=== PATIENT | male | born 1950 | race Caucasian/White ===

== ENCOUNTER 2017-03-19 16:15 | Emergency (ER) | payer MEDICARE, OTHER ==
--- NOTE | 2017-03-19 16:44 | EDPHY ---
H & P Stated Complaint: Subjective fever,Pain in kidneys; "lots of problems" Source: Patient Exam Limitations: No limitations - Personal History Current Tetanus Diphtheria and Acellular Pertussis (TDAP): Unsure - Medical/Surgical History Hx Asthma: No Hx Chronic Respiratory Disease: No Hx Diabetes: Yes Hx Cardiac Disease: Yes Hx Renal Disease: No Hx Cirrhosis: Yes Hx Alcoholism: No Hx HIV/AIDS: Yes Hx Splenectomy or Spleen Trauma: No Other PMH: out of all of his meds, no med care >2 yrs - Social History Smoking Status: Never smoked Time Seen by Provider: 03/19/17 16:41 HPI/ROS: HPI: This is a 66-year-old male who presents with Chief Complaint: "kidney pain" Location: mid-back Quality:"kidney pain" Duration: Several days Signs and Symptoms: + dysuria, + hesitancy, no hematuria, no N/V, no abdominal pain, + bilateral mid-back, no fever, no chills, no chest pain, no shortness of breath, no lower extremity swelling, no jaundice, no hematemesis, no testicular pain, no abdominal distention Timing: Gradual onset, constant Severity: Moderate Context: Patient presents with multiple complaints but is most concerned with having a urinary tract infection bilateral "kidney pain." Has not had a bowel movement in 4 days. Patient has not been to his primary care provider in 3 years due to being on 13 medications at 1 point and he no longer wants to take that many again. Denies history of BPH. Denies injury/heavy lifting. Modifying Factors: Did not call primary care provider Comment: ROS: Constitutional: No fever, no chills, no weight loss Eyes: No blurred vision Respiratory: No shortness of breath, no cough Cardiovascular: No chest pain Gastrointestinal: No nausea, no vomiting no diarrhea Genitourinary: + dysuria Extremities: No myalgias Neurologic: No weakness, no numbness Skin: No rashes Hematologic: No bruising, no bleeding MEDICAL/SURGICAL HISTORY: History of cirrhosis, hepatitis-C, esophageal varices, type 2 diabetes mellitus , anemia requiring blood transfusion from blood loss, coronary artery disease status post stent, HIV/AIDS Laparoscopic Cholecystectomy. (Vonda Zimmerman) - Physical Exam Exam: CONSTITUTIONAL: Elderly white male, well appearing, nontoxic in appearance, awake and alert, no obvious distress HEENT: Atraumatic and normocephalic, PERRL, EOMI. Tympanic membranes clear. Oropharynx clear, no exudate and moist pink mucosa. Airway patent. No lymphadenopathy. No meningismus. Cardiovascular: Normal S1/S2, regular rate, regular rhythm, without murmur rub or gallop. PULMONARY/CHEST: Symmetrical and nontender. Clear to auscultation bilaterally Good air movement. No accessory muscle usage. ABDOMEN: Soft, nondistended, nontender, no rebound, no guarding, no peritoneal signs, no masses or organomegaly. No CVAT. EXTREMITIES: 2/2 pulses, no deformities, no clubbing, no cyanosis or edema. NEUROLOGICAL: no focal neuro deficits. GCS 15. SKIN: Warm and dry, no erythema. no rash. Good capillary refill. (Vonda Zimmerman) Constitutional: Initial Vital Signs Temperature (C) 37.1 C 03/19/17 16:17 Heart Rate 80 03/19/17 16:17 Respiratory Rate 16 03/19/17 16:17 Blood Pressure 146/84 H 03/19/17 16:17 O2 Sat (%) 97 03/19/17 16:17 O2 Delivery Mode Room Air Allergies/Adverse Reactions: Penicillins Allergy (Unknown, Verified 03/19/17 16:16) Other-Enter Comments Home Medications: Medication Instructions Recorded Nitrofurantoin Monohyd/M-Cryst 100 mg PO BID #14 capsule 03/19/17 [Macrobid 100 mg Capsule] Phenazopyridine HCl [Pyridium] 200 mg PO TID #6 tab 03/19/17 Medical Decision Making - Diagnostics Imaging Results: Imaging Impressions Abdomen X-Ray 03/19/17 16:39 Impression: Nonspecific bowel gas pattern. 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 will evaluate for UTI and elevated LFTs. afebrile. no systemic signs. No signs of active bleeding. non-compliant patient END OF SHIFT: Signed out at [address] Dhillon pending work up. (Vonda Zimmerman) Differential Diagnosis: Back pain including but not limited to muscular pain, herniated disc, spine fracture, intra-abdominal causes and urinary tract infection. (Vonda Zimmerman) Urinalysis is consistent with urinary tract infection. There is no elevation white blood cell count. Liver function tests are appropriate. Plan will be to start the patient on antibiotics and refer for outpatient follow-up. (Stalin Dhillon) - Data Points Laboratory Results: Laboratory Results 03/19/17 16:47 03/19/17 16:47 03/19/17 03/19/17 03/19/17 16:47 16:47 16:47 WBC RBC Hgb Hct MCV MCH MCHC RDW Plt Count MPV Neut % (Auto) Lymph % (Auto) [place] % (Auto) Eos % (Auto) Baso % (Auto) Nucleat RBC Rel Count Absolute Neuts (auto) Absolute Lymphs (auto) Absolute Monos (auto) Absolute Eos (auto) Absolute Basos (auto) Absolute Nucleated RBC Immature Gran % Immature Gran # VBG Lactic Acid 1.7 mmol/L mmol/L (0.7-2.1) Sodium 131 mEq/L L mEq/L (134-144) Potassium 3.6 mEq/L mEq/L (3.5-5.2) Chloride 100 mEq/L mEq/L (97-110) Carbon Dioxide 20 mEq/l L mEq/l (22-31) Anion Gap 11 mEq/L mEq/L (8-16) BUN 15 mg/dL mg/dL (7-23) Creatinine 1.1 mg/dL mg/dL (0.7-1.3) Estimated GFR > 60 Glucose 278 mg/dL H mg/dL (70-100) Calcium 8.4 mg/dL L mg/dL (8.5-10.4) Magnesium 1.6 mg/dL mg/dL (1.6-2.3) Total Bilirubin 1.2 mg/dL mg/dL (0.1-1.4) Conjugated Bilirubin 0.3 mg/dL mg/dL (0.0-0.5) Unconjugated Bilirubin 0.9 mg/dL mg/dL (0.0-1.1) AST 36 IU/L IU/L (17-59) ALT 49 IU/L IU/L (21-72) Alkaline Phosphatase 91 IU/L IU/L (38-126) Total Protein 7.1 g/dL g/dL (6.3-8.2) Albumin 2.9 g/dL L g/dL (3.5-5.0) Lipase 299 IU/L IU/L (23-300) Beta-Hydroxybutyrate Pending Urine Color ALEXANDRE Urine Appearance HAZY Urine pH 5.0 (5.0-7.5) Ur Specific [place] 1.025 (1.002-1.030) Urine Protein 2+ H (NEGATIVE) Urine Ketones NEGATIVE (NEGATIVE) Urine Blood 1+ H (NEGATIVE) Urine Nitrate NEGATIVE (NEGATIVE) Urine Bilirubin NEGATIVE (NEGATIVE) Urine Urobilinogen NEGATIVE EU EU (0.2-1.0) Ur Leukocyte Esterase 3+ H (NEGATIVE) Urine RBC 5-10 /hpf H /hpf (0-3) Urine WBC 50-182 /hpf H /hpf (0-3) Ur Epithelial Cells TRACE /lpf /lpf (NONE-1+) Hyaline Casts 1-5 /lpf /lpf (0-1) Urine Mucus TRACE /lpf /lpf (NONE-1+) Urine Glucose NEGATIVE (NEGATIVE) 03/19/17 16:47 WBC 7.57 10^3/uL 10^3/uL (3.80-9.50) RBC 4.72 10^6/uL 10^6/uL (4.40-6.38) Hgb 11.6 g/dL L g/dL (13.7-17.5) Hct 36.8 % L % (40.0-51.0) MCV 78.0 fL L fL (81.5-99.8) MCH 24.6 pg L pg (27.9-34.1) MCHC 31.5 g/dL L g/dL (32.4-36.7) RDW 16.5 % H % (11.5-15.2) Plt Count 109 10^3/uL L 10^3/uL (150-400) MPV 10.9 fL fL (8.7-11.7) Neut % (Auto) 77.8 % H % (39.3-74.2) Lymph % (Auto) 11.2 % L % (15.0-45.0) [place] % (Auto) 9.8 % % (4.5-13.0) Eos % (Auto) 0.4 % L % (0.6-7.6) Baso % (Auto) 0.4 % % (0.3-1.7) Nucleat RBC Rel Count 0.0 % % (0.0-0.2) Absolute Neuts (auto) 5.89 10^3/uL 10^3/uL (1.70-6.50) Absolute Lymphs (auto) 0.85 10^3/uL L 10^3/uL (1.00-3.00) Absolute Monos (auto) 0.74 10^3/uL 10^3/uL (0.30-0.80) Absolute Eos (auto) 0.03 10^3/uL 10^3/uL (0.03-0.40) Absolute Basos (auto) 0.03 10^3/uL 10^3/uL (0.02-0.10) Absolute Nucleated RBC 0.00 10^3/uL 10^3/uL (0-0.01) Immature Gran % 0.4 % % (0.0-1.1) Immature Gran # 0.03 10^3/uL 10^3/uL (0.00-0.10) VBG Lactic Acid Sodium Potassium Chloride Carbon Dioxide Anion Gap BUN Creatinine Estimated GFR Glucose Calcium Magnesium Total Bilirubin Conjugated Bilirubin Unconjugated Bilirubin AST ALT Alkaline Phosphatase Total Protein Albumin Lipase Beta-Hydroxybutyrate Urine Color Urine Appearance Urine pH Ur Specific [place] Urine Protein Urine Ketones Urine Blood Urine Nitrate Urine Bilirubin Urine Urobilinogen Ur Leukocyte Esterase Urine RBC Urine WBC Ur Epithelial Cells Hyaline Casts Urine Mucus Urine Glucose Departure - Departure Disposition: Home, Routine, Self-Care Clinical Impression: Medical non-compliance, Urinary tract infection Condition: Good Instructions: Urinary Tract Infection in Women (ED) Additional Instructions: Follow up with Dr. Haywood in 4-5 days. Return to the emergency depart for increasing pain, fevers, chills, nausea, vomiting, or any other concerns. Please make sure to take your full course of antibiotics. Referrals: Sabrina Haywood MD [Medical Doctor] - As per Instructions Prescriptions: Nitrofurantoin Monohyd/M-Cryst [Macrobid 100 mg Capsule] 100 mg PO BID #14 capsule Phenazopyridine HCl [Pyridium] 200 mg PO TID #6 tab
[2017-03-19 17:00] LABS: % IMMATURE GRANULYOCYTES 0.4 % (0.0-1.1); ABSOLUTE IMMATURE GRANULOCYTES 0.03 10^3/uL (0.00-0.10); ADD DIFF? NO; ADD MORPH? NO; ADD SCAN? NO; ATYPICAL LYMPHOCYTE FLAG 0 (0-99); FRAGMENT RBC FLAG 0 (0-99); HEMATOCRIT 36.8 % (40.0-51.0); HEMOGLOBIN 11.6 g/dL (13.7-17.5); LEFT SHIFT FLG 0 (0-99); LIPEMIA HEMOLYSIS FLAG 80 (0-99); MEAN CELL HEMOGLOBIN 24.6 pg (27.9-34.1); MEAN CELL HEMOGLOBIN CONCENTR. 31.5 g/dL (32.4-36.7); MEAN PLATELET VOLUME 10.9 fL (8.7-11.7); PLATELET CLUMPS FLAG 0 (0-99); PLATELET COUNT 109 10^3/uL (150-400); RED BLOOD CELL COUNT 4.72 10^6/uL (4.40-6.38); RED CELL DISTRIBUTION WIDTH 16.5 % (11.5-15.2)
[2017-03-19 17:03] LABS: COLOR AMBER; LEUKOCYTE ESTERASE,URINE 3+ (NEGATIVE); NITRITE,URINE NEGATIVE (NEGATIVE)
[2017-03-19 17:06] LABS: MUCUS TRACE /lpf (NONE-1+); WBC,URINE 50-182 /hpf (0-3)
[2017-03-19 17:15] LABS: ALANINE AMINOTRANSFERASE 49 IU/L (21-72); ALBUMIN 2.9 g/dL (3.5-5.0); ALKALINE PHOSPHATASE 91 IU/L (38-126); ANION GAP 11 mEq/L (8-16); ASPARTATE AMINOTRANSFERASE 36 IU/L (17-59); BILIRUBIN,TOTAL 1.2 mg/dL (0.1-1.4); BILIRUBIN-CONJUGATED 0.3 mg/dL (0.0-0.5); BILIRUBIN-UNCONJUGATED 0.9 mg/dL (0.0-1.1); CALCIUM 8.4 mg/dL (8.5-10.4); CARBON DIOXIDE 20 mEq/l (22-31); CHLORIDE 100 mEq/L (97-110); CREATININE 1.1 mg/dL (0.7-1.3); GLOMERULAR FILTRATION RATE > 60; GLUCOSE 278 mg/dL (70-100); MAGNESIUM 1.6 mg/dL (1.6-2.3); POTASSIUM 3.6 mEq/L (3.5-5.2); SODIUM 131 mEq/L (134-144); TOTAL PROTEIN 7.1 g/dL (6.3-8.2)
[2017-03-19] MEDS ORDERED: NITROFURANTOIN 100MG PREPACK#2 BTL TAKEHOME ONE (17:29)
[2017-03-19] MEDS ORDERED: PHENAZOPYRIDINE HCL 200 MG TAB PO ONE (17:29)
[2017-03-19 17:49] LABS: B-HYDROXYBUTYRATE 0.11 mmol/L (0.02-0.27)
[2017-03-19 17:50] VITALS: BP 135/75; PULSE 76; RESP 18; TEMP 98.6; O2SAT 96
== END 2017-03-19 17:50 | disposition home or self-care (01) ==
DX: N39.0 Urinary tract infection, site not specified (principal); E11.9 Type 2 diabetes mellitus without complications; I25.10 Atherosclerotic heart disease of native coronary artery without angina pectoris; B20 Human immunodeficiency virus [HIV] disease; Z91.19 Patient's noncompliance with other medical treatment and regimen; Z95.5 Presence of coronary angioplasty implant and graft

== ENCOUNTER 2017-03-23 20:48 | Inpatient (IN) | payer OTHER ==
[2017-03-23] MEDS ORDERED: NS 1,000 ML IV ONE (21:55)
--- NOTE | 2017-03-23 21:55 | EDPHY ---
H & P Stated Complaint: flank pain bilaterally, burning, fatigue, fever HPI/ROS: HPI CHIEF COMPLAINT: Bilateral flank, urinary frequency, dysuria, fever HISTORY OF PRESENT ILLNESS: This patient very pleasant 58-year-old male he does have significant past medical history for coronary artery disease, hepatitis-C, esophageal varices, who presents emergency room with bilateral flank pain urinary frequency and dysuria that is getting worse. Also tells me he has been febrile. 102. Denies chest pain or shortness of breath. Has nausea but no vomiting. States he feels fatigued. Decided come back to the emergency room. He has been taking his Macrobid for a recently diagnosed UTI on March 19. Past Medical History: Coronary disease, hepatitis-C, esophageal varices Past Surgical History: No recent surgery Social History: Denies daily use drugs alcohol tobacco products. Remote history of drug use. Family History: Noncontributory ROS REVIEW OF SYSTEMS: A comprehensive 10 point review of systems is otherwise negative aside from elements mentioned in the history of present illness. Exam Constitutional appears well nontoxic, triage nursing summary reviewed, vital signs reviewed, awake/alert. Eyes normal conjunctivae and sclera, EOMI, PERRLA. HENT normal inspection, atraumatic, moist mucus membranes, no epistaxis, neck supple/ no meningismus, no raccoon eyes. Respiratory clear to auscultation bilaterally, normal breath sounds, no respiratory distress, no wheezing. Cardiovascular rate normal, regular rhythm, no murmur, no edema, distal pulses normal. Gastrointestinal soft, non-tender, no rebound, no guarding, normal bowel sounds, no distension, no pulsatile mass. Genitourinary bilateral CVA tenderness on exam Musculoskeletal no midline vertebral tenderness, full range of motion, no calf swelling, no tenderness of extremities, no meningismus, good pulses, neurovascularly intact. Skin pink, warm, & dry, no rash, skin atraumatic. Neurologic awake, alert and oriented x 3, AAOx3, moves all 4 extremities equally, motor intact, sensory intact, CN II-XII intact, normal cerebellar, normal vision, normal speech. Psychiatric normal mood/affect. Heme/Lymph/Immune no lymphadenopathy. Differential diagnosis includes but is not limited to and in no particular order : Bowel obstruction, appendicitis, gallbladder disease, diverticulitis, colitis , enteritis, perforated viscus, gastritis, GERD, esophagitis, urinary tract infection, pyelonephritis, kidney stones Medical Decision Making: Plan for this patient IV establishment with IV fluid bolus, check blood work, lactic acid, blood cultures, urinalysis, CT abdomen pelvis without contrast for flank pain. Re-evaluation: 2303: This patient be admitted to the hospital for UTI hollow symptoms. IV Rocephin has been ordered. Blood clot, and culture. Reviewed his urinalysis test. No systemic white count. He is anemic he is agreeable for admission. CT scan shows liver cirrhosis small volume ascites otherwise unremarkable CT scan. He is agreeable for admission. Spoke with the hospitalist service Dr. Manuel who agrees to admit this patient. Source: Patient - Personal History Current Tetanus/Diphtheria Vaccine: No Current Tetanus Diphtheria and Acellular Pertussis (TDAP): No - Medical/Surgical History Hx Asthma: No Hx Chronic Respiratory Disease: No Hx Diabetes: Yes Hx Cardiac Disease: Yes Hx Renal Disease: No Hx Cirrhosis: Yes Hx Alcoholism: No Hx HIV/AIDS: Yes Hx Splenectomy or Spleen Trauma: No Other PMH: anemia, hepatitis C, esphogeal varices, ascities, cardiac stents, - Social History Smoking Status: Never smoked Constitutional: Initial Vital Signs Temperature (C) 37.9 C 03/23/17 20:50 Heart Rate 88 03/23/17 20:50 Respiratory Rate 18 03/23/17 20:50 Blood Pressure 144/89 H 03/23/17 20:50 O2 Sat (%) 97 03/23/17 20:50 O2 Delivery Mode Room Air Allergies/Adverse Reactions: Penicillins Allergy (Unknown, Verified 03/19/17 16:16) Other-Enter Comments Home Medications: Medication Instructions Recorded Nitrofurantoin Monohyd/M-Cryst 100 mg PO BID #14 capsule 03/19/17 [Macrobid 100 mg Capsule] Acetaminophen [Tylenol 325mg (*)] 650 mg PO DAILY PRN 03/23/17 Medical Decision Making - Diagnostics Imaging Results: Imaging Impressions Paracentesis Ultrasound 03/24/17 00:18 Impression: Successful 1400 mL paracentesis with ultrasound guidance. - Data Points Laboratory Results: Laboratory Results 03/24/17 05:08 03/24/17 05:08 Microbiology Results: MICROBIOLOGY 03/23/17 22:39 Blood Blood Culture - Preliminary Gram Positive Cocci 03/23/17 22:39 Blood Blood Panel (PCR) - Final S.aureus Methicillin Suscept. 03/23/17 21:50 Urine,Clean Catch Urine Culture - Preliminary Staphylococcus Aureus 03/23/17 22:55 Blood Blood Culture - Preliminary Gram Positive Cocci Medications Given: Acetaminophen (Tylenol) 500 mg PO Q8H PRN PRN Reason: Pain, Mild/Fever, Can Take PO Stop: 09/20/17 00:18 Last Admin: 03/24/17 15:20 Dose: 500 mg Enoxaparin Sodium (Lovenox) 40 mg SC DAILY [facility] Stop: 09/20/17 08:59 Last Admin: 03/24/17 08:47 Dose: 40 mg Cefazolin Sodium/Dextrose (Ancef 2 Gm (Premix)) 100 mls @ 200 mls/hr IV Q8H [facility] PRN Reason: Protocol Stop: 04/23/17 18:29 Last Admin: 03/24/17 18:43 Dose: 100 mls Insulin Human Lispro (Humalog Lispro) 0 unit SC TIDMEAL [facility] PRN Reason: Protocol Stop: 09/20/17 17:59 Last Admin: 03/24/17 17:07 Dose: 6 units Magnesium Hydroxide (Milk Of Magnesia) 30 ml PO DAILY PRN; Protocol PRN Reason: Constipation Stop: 09/20/17 00:14 Last Admin: 03/24/17 00:49 Dose: 30 ml Oxycodone HCl (Oxycodone Ir) 5 mg PO Q4HRS PRN PRN Reason: Pain, Severe Able to Take PO Stop: 04/03/17 09:26 Last Admin: 03/24/17 18:43 Dose: 5 mg Senna/Docusate Sodium (Senokot-S) 1 - 2 tab PO BID [facility] PRN Reason: Protocol Stop: 09/20/17 08:59 Last Admin: 03/24/17 21:03 Dose: 2 tab Discontinued Medications Sodium Chloride (Ns) 1,000 mls @ 0 mls/hr IV EDNOW ONE; Wide Open PRN Reason: Protocol Stop: 03/23/17 21:56 Last Admin: 03/23/17 22:54 Dose: 1,000 mls Ceftriaxone Sodium/Dextrose (Rocephin 1 Gm (Premix)) 50 mls @ 100 mls/hr IV EDNOW ONE PRN Reason: Protocol Stop: 03/23/17 22:56 Last Admin: 03/23/17 22:56 Dose: 50 mls Ceftriaxone Sodium/Dextrose (Rocephin 1 Gm (Premix)) 50 mls @ 100 mls/hr IV DAILY KATHYA PRN Reason: Protocol Stop: 04/23/17 08:59 Last Admin: 03/24/17 08:48 Dose: 50 mls Sodium Chloride (Ns) 1,000 mls @ 75 mls/hr IV CONT KATHYA Stop: 09/20/17 00:29 Last Admin: 03/24/17 13:08 Dose: 1,000 mls Ibuprofen (Motrin) 600 mg PO Q6HRS PRN PRN Reason: Pain, Inflammatory Stop: 09/20/17 00:18 Last Admin: 03/24/17 01:30 Dose: 600 mg Departure - Departure Disposition: [facility] Acute Clinical Impression: Pyelonephritis Condition: Fair
[2017-03-23 22:06] LABS: COLOR YELLOW; LEUKOCYTE ESTERASE,URINE 3+ (NEGATIVE); NITRITE,URINE NEGATIVE (NEGATIVE)
[2017-03-23 22:21] LABS: BACTERIA TRACE /hpf (NONE SEEN); RBC,URINE 25-50 /hpf (0-3); WBC,URINE 50-182 /hpf (0-3)
[2017-03-23 22:52] LABS: % IMMATURE GRANULYOCYTES 0.5 % (0.0-1.1); ABSOLUTE IMMATURE GRANULOCYTES 0.04 10^3/uL (0.00-0.10); ADD DIFF? NO; ADD MORPH? NO; ADD SCAN? NO; ATYPICAL LYMPHOCYTE FLAG 10 (0-99); FRAGMENT RBC FLAG 0 (0-99); HEMATOCRIT 33.4 % (40.0-51.0); HEMOGLOBIN 10.4 g/dL (13.7-17.5); LEFT SHIFT FLG 0 (0-99); LIPEMIA HEMOLYSIS FLAG 80 (0-99); MEAN CELL HEMOGLOBIN 24.6 pg (27.9-34.1); MEAN CELL HEMOGLOBIN CONCENTR. 31.1 g/dL (32.4-36.7); MEAN CELL VOLUME 79.1 fL (81.5-99.8); MEAN PLATELET VOLUME 10.8 fL (8.7-11.7); PLATELET CLUMPS FLAG 10 (0-99); PLATELET COUNT 150 10^3/uL (150-400); RED BLOOD CELL COUNT 4.22 10^6/uL (4.40-6.38); RED CELL DISTRIBUTION WIDTH 16.5 % (11.5-15.2)
[2017-03-23 23:01] LABS: INR 1.26 (0.83-1.16); PROTIME(PATIENT) 15.8 SEC (12.0-15.0)
[2017-03-23 23:02] LABS: APTT 31.5 SEC (23.0-38.0)
[2017-03-23 23:03] LABS: ALANINE AMINOTRANSFERASE 48 IU/L (21-72); ALBUMIN 2.9 g/dL (3.5-5.0); ALKALINE PHOSPHATASE 126 IU/L (38-126); ANION GAP 8 mEq/L (8-16); ASPARTATE AMINOTRANSFERASE 32 IU/L (17-59); BILIRUBIN-CONJUGATED 0.4 mg/dL (0.0-0.5); BILIRUBIN-UNCONJUGATED 0.6 mg/dL (0.0-1.1); CALCIUM 8.1 mg/dL (8.5-10.4); CARBON DIOXIDE 20 mEq/l (22-31); CHLORIDE 103 mEq/L (97-110); CREATININE 0.9 mg/dL (0.7-1.3); GLOMERULAR FILTRATION RATE > 60; GLUCOSE 254 mg/dL (70-100); POTASSIUM 3.9 mEq/L (3.5-5.2); SODIUM 131 mEq/L (134-144); TOTAL PROTEIN 6.9 g/dL (6.3-8.2)
[2017-03-23] MEDS ORDERED: ONDANSETRON DISINTEGRATING 4 MG TAB PO PRN (23:32)
[2017-03-23] MEDS ORDERED: ONDANSETRON 4 MG/2 ML VIAL IVP PRN (23:32)
[2017-03-23] MEDS ORDERED: ACETAMINOPHEN 325 MG TAB PO PRN (23:32)
[2017-03-24] MEDS ORDERED: LACTULOSE 20 GM/30 ML UDCUP PO PRN (00:15)
[2017-03-24] MEDS ORDERED: POLYETHYLENE GLYCOL 3350 17 GM PKT PO PRN (00:15)
[2017-03-24] MEDS ORDERED: BISACODYL 10 MG SUPP PR PRN (00:15)
[2017-03-24] MEDS ORDERED: MAGNESIUM HYDROXIDE 30 ML UDCUP PO PRN (00:15)
[2017-03-24] MEDS ORDERED: IBUPROFEN 600 MG TAB PO PRN (00:19)
[2017-03-24] MEDS: NS 1,000 ML IV SCH ×2 (00:44→13:08)
[2017-03-24] MEDS ORDERED: SENNOSIDES/DOCUSATE SODIUM TAB PO ONE (00:46)
[2017-03-24] MEDS: SENNOSIDES/DOCUSATE SODIUM TAB PO SCH ×3 (00:48→21:03)
--- NOTE | 2017-03-24 03:26 | GHP ---
[f rep st] HISTORY AND PHYSICAL DATE OF ADMISSION: 03/24/2017 CHIEF COMPLAINT: Flank pain. PRIMARY EMERGENCY DISPATCH OPERATOR: Stalin Vanegas MD. HISTORY OF PRESENT ILLNESS: A 66-year-old male with history of cirrhosis secondary to hepatitis C, who was seen in the emergency room on 03/19/2017 for urinary symptoms and sent home on antibiotics. He was prescribed Macrobid. He returns today because he states that he was not getting better. His symptoms include fevers, chills, sweats. He had temperatures of 102 at home. Decreased p.o. intake. He has had bilateral flank pain and feels like he was kicked. He has also had a headache. Mild nausea. No diarrhea. Feels fatigued. He has also been taking Tylenol and Advil for his fever. It feels like his body has been "oxidized." PAST MEDICAL HISTORY: Coronary artery disease, hepatitis C. Cirrhosis with esophageal varices status post banding several times last 09/07/2014, per patient. Type 2 diabetes, off medications. Anemia. PAST SURGICAL HISTORY: Cholecystectomy. FAMILY HISTORY: Colon cancer. HOME MEDICATIONS: Macrobid and Pyridium. ALLERGIES: Penicillin. 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 He denies alcohol, tobacco, or illicits. PHYSICAL EXAMINATION: VITAL SIGNS: Temperature 36.9 blood pressure 163/84, heart rate 70s, respirations 16, 97% on room air. GENERAL: Thin male, restless in bed, in no acute distress. HEENT: PERRLA. Mildly dry mucous membranes. CV: Regular rate and rhythm. No murmurs, gallops, or rubs. LUNGS : Clear. No crackles or wheezing. ABDOMEN: Mildly distended but soft. Mild right upper quadrant tenderness. No rebound, guarding. Quiet bowel sounds throughout. : Right suprapubic tenderness to palpation. Bilateral CVA tenderness. MUSCULOSKELETAL: 5/5 upper lower extremity strength. NEURO: 2 through 12 intact. PSYCH: Alert and oriented x3. LABORATORIES: WBC 7, hemoglobin 10, hematocrit 33, platelets 150, (baseline is 12 and 40 in 2014). Sodium 131, potassium 3.9, chloride 103, carbon dioxide 20 , anion gap of 8, creatinine 0.9, glucose 254, calcium 8.1. Total bilirubin 1, conjugated 0.4, AST 32, ALT 48, alkaline phosphatase 126, lipase 321, albumin 2.9, protein 6.9. Urine +3 leuk esterase, 50-182 WBCs, trace bacteria. INR is 1.2, PT is 15. Blood and urine cultures are pending. IMAGING: CT abdomen and pelvis, no acute findings in the abdomen. Cirrhosis with sequela of portal hypertension including splenomegaly and small volume ascites. Kidneys appear normal, no stones. ASSESSMENT AND PLAN: 1. Urinary tract infection/pyelonephritis: failed outpatient therapy on Macrobid. Start IV ceftriaxone here. Urine and blood cultures are pending. He is afebrile here. Blood pressure stable. CT without abscess or hydronephrosis. 2. Abdominal pain: Suspect this is secondary to urinary infection, however, does have small amount of ascites. Covered with ceftriaxone tonight. Obtain diagnostic paracentesis in the morning and rule out spontaneous bacterial peritonitis given underlying cirrhosis. 3. Compensated cirrhosis: He is followed by Dr. Vanegas. He has history of esophageal varices banded several times. He was previously on diuretics but none now. 4. Hypovolemic hyponatremia. Sodium mildly decreased at 131, baseline is 134. Will give back the gentle IV fluids. 5. Constipation. He has not had a bowel movement in 9 days. For bowel regimen , he would like to take senna. 6. Normocytic anemia. H and H are 10 and 33, down from baseline hematocrit of 40 two years ago. He denies any melena, hematemesis, or red stools. Monitor. 7. Hyperglycemia: He states he has diabetes, but has been off medications for several years. He tries to adhere to a diabetic diet. We will check a hemoglobin A1c as may need re-initiation of medications. 8. Mild metabolic acidosis secondary to decreased p.o. intake, dehydration. Will give back gentle fluids. 9. Deep venous thrombosis prophylaxis. Lovenox. 10. Diet: Regular. 11. Disposition. The patient warrants observation admission given urinary tract infection/pyelonephritis warranting intravenous antibiotics. /[id number]/MODL MTDD
[2017-03-24 05:28] LABS: HEMATOCRIT 32.2 % (40.0-51.0); HEMOGLOBIN 10.1 g/dL (13.7-17.5); MEAN CELL HEMOGLOBIN 24.9 pg (27.9-34.1); MEAN CELL HEMOGLOBIN CONCENTR. 31.4 g/dL (32.4-36.7); MEAN CELL VOLUME 79.3 fL (81.5-99.8); RED BLOOD CELL COUNT 4.06 10^6/uL (4.40-6.38); RED CELL DISTRIBUTION WIDTH 16.5 % (11.5-15.2)
[2017-03-24 05:39] LABS: ANION GAP 6 mEq/L (8-16); CALCIUM 8.1 mg/dL (8.5-10.4); CARBON DIOXIDE 20 mEq/l (22-31); CHLORIDE 107 mEq/L (97-110); GLOMERULAR FILTRATION RATE > 60; GLUCOSE 197 mg/dL (70-100); POTASSIUM 3.9 mEq/L (3.5-5.2); SODIUM 133 mEq/L (134-144)
[2017-03-24] MEDS: ENOXAPARIN 40 MG/0.4 ML SYR SC SCH (08:47)
[2017-03-24 09:03] LABS: HEMOGLOBIN A1C 9.8 % (4.0-6.0)
--- NOTE | 2017-03-24 09:24 | HOSPPROG ---
Hospitalist Progress Note Assessment/Plan: Patient is a 66-year-old male with history of cirrhosis secondary to hepatitis- C. He came to the emergency room because of ongoing flank pain. after longer discussion. The patient has been having symptoms for over a week with associated fever and chills for thought he would tough it out. Today is my 1st encounter with the patient. Chart reviewed. * urinary tract infection/pyelonephritis On ceftriaxone CT scan does not noted any abscess or hydronephrosis * bacteremia/ two positive blood cultures with gram positive cocci/ staph aureus change him to cephazolin for now and await for ID to further comment will ask ID to get involved to help w abx therapy * abdominal pain He has a small amount of ascites Paracentesis performed to rule out spontaneous bacterial peritonitis which he does not have * compensated cirrhosis Sees Dr. Vanegas in the outpatient setting Not on diuretics Liver enzymes are stable * hyponatremia most likely secondary to hypovolemia * normocytic anemia follow his labs are close to his baseline * metabolic acidosis secondary to dehydration *DM /hx of diabetes/not on treatment A1C 9.8/ average glucose of [address] him on a sliding scale * hyponatremia recheck in the morning *Plan:he will need another midnight stay due to bacteremia/will ask ID to weigh in on abx therapy and if an echo is indicated Subjective: Bimal said he is feeling poorly today. Objective: Vital Signs Temp Pulse Resp BP Pulse Ox 36.7 C 66 16 127/60 H 98 03/24/17 07:46 03/24/17 07:46 03/24/17 07:46 03/24/17 07:46 03/24/17 07:46 Laboratory Results 03/24/17 05:08 03/24/17 05:08 03/23/17 03/24/17 03/25/17 05:59 05:59 05:59 Intake Total 2501 Output Total 150 Balance 2351 PT 15.8 SEC (12.0-15.0) H 03/23/17 22:39 INR 1.26 (0.83-1.16) H 03/23/17 22:39 - Physical Exam Constitutional: uncomfortable, No not in pain (flank pain) Ears, Nose, Mouth, Throat: hearing normal Cardiovascular: regular rate and rhythym Respiratory: no respiratory distress Gastrointestinal: normoactive bowel sounds Skin: warm Musculoskeletal: full muscle strength Neurologic: AAOx3 Psychiatric: interacting appropriately, not anxious ICD10 Worksheet Patient Problems: Problems Problem Status Onset Pyelonephritis Acute Anemia Acute
[2017-03-24] MEDS: oxyCODONE IR 5 MG TAB PO PRN ×2 (10:09→18:43)
[2017-03-24] MEDS ORDERED: LIDOCAINE 1% 300 MG/30 ML SDV ONE (12:24)
[2017-03-24] MEDS ORDERED: D50W 25 GM/50 ML SYR IVP PRN (13:55)
[2017-03-24] MEDS ORDERED: D10W 250 ML PRN HYPOGLYCEMIA IV (14:30)
[2017-03-24] MEDS: ACETAMINOPHEN 500 MG TAB PO PRN (15:20)
[2017-03-24 15:39] LABS: GLUCOSE, PERITONEAL FLUID 221 mg/dL (55-113)
[2017-03-24] MEDS: INSULIN LISPRO 100 UNIT/ML SC SCH (17:07)
[2017-03-24] MEDS: ceFAZolin 2 GM/DEXTROSE 100 ML IV SCH (18:43)
[2017-03-25] MEDS: oxyCODONE IR 5 MG TAB PO PRN ×5 (00:57→20:46)
[2017-03-25] MEDS: ACETAMINOPHEN 500 MG TAB PO PRN ×2 (01:01→22:28)
[2017-03-25] MEDS: ceFAZolin 2 GM/DEXTROSE 100 ML IV SCH ×3 (01:55→17:31)
--- NOTE | 2017-03-25 04:23 | GCON ---
[f rep st] CONSULTATION INFECTIOUS DISEASE CONSULTATION DATE OF CONSULTATION: 03/24/2017 Requesting provider is Alma Rios, nurse practitioner. REASON FOR CONSULTATION: Staphylococcus aureus bacteremia. HISTORY OF PRESENT ILLNESS: Patient is a 66-year-old male with a past medical history of cirrhosis d ue to hepatitis C, who I am asked to see in consultation for methicillin-susceptible Staphylococcus a ureus bacteremia. The patient describes developing fever with shaking chills approximately 10 days a go. These have occurred intermittently since then. They are more prominent in the evening. On 07/2016, the patient was seen in the emergency department for these complaints. He was also having sy mptoms of dysuria, frequency, and hesitancy. He also noted bilateral flank pain. At that time, he h ad a normal white blood cell count and temperature. Findings were felt to be compatible with urinary tract infection and he was started on nitrofurantoin. Despite his antibiotic therapy, his symptoms persisted and he had ongoing fever with chills, as well as dysuria and frequency, prompting his repea t evaluation in the emergency department yesterday. He continued to have bilateral flank pain and de scribes this as feeling like he had been kicked. He was admitted and treated presumptively for pyelo nephritis with ceftriaxone. Blood cultures were obtained and 2 of 2 sets are now showing methicillin -susceptible Staphylococcus aureus. Urine culture obtained yesterday is also showing low colony coun ts of Staphylococcus aureus. He did undergo CT scan of the abdomen and pelvis which showed no acute findings and changes compatible with cirrhosis were present with a small amount of ascites being note d. Kidneys did not show any abnormal enhancement. 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 He did have associated nausea without sign ificant vomiting or diarrhea. He has a chronic cough and shortness of breath, which are largely unch anged. He did undergo paracentesis earlier today, which showed 361 white blood cells with 18% neutro phils. Gram stain and culture of this fluid are pending. There is no recent travel or animal exposu re. He does have a prior history of bacteremia due to Streptococcus salivarius in 2013, which was fe lt to be associated with GI bleed. He did see Dr. Garcia in my practice at that point in time and re ceived a treatment course with IV ceftriaxone. Based on the above findings, I am now asked to assist in his ongoing management. PAST MEDICAL HISTORY: Cirrhosis due to hepatitis C, esophageal varices, coronary artery disease, typ e 2 diabetes mellitus, anemia. PAST SURGICAL HISTORY: Cholecystectomy. CURRENT MEDICATIONS: Ceftriaxone 1 g IV daily, Lovenox 40 mg subcu daily, lactulose 20 g p.o. 3 time s per day as needed, OxyIR as needed. ALLERGIES: Penicillin, although this occurred many years ago and he is unsure of what the reaction w as. SOCIAL HISTORY: Patient does not smoke, drink alcohol or use drugs; he did use injection drugs in , which is felt to be the etiology for his hepatitis C. No animal exposure or recent travel. FAMILY HISTORY: Metastatic cancer in his mother. REVIEW OF SYSTEMS: Outside that noted in the HPI, the remainder of 10 system review is unremarkable. PHYSICAL EXAMINATION: VITAL SIGNS: Temperature 37.8, heart rate 71, respiratory rate 16, blood pres sure 134/61, oxygen saturation 96% on room air. GENERAL: Patient is chronically ill appearing, in n o acute distress. He appears nontoxic. HEENT: There is no scleral icterus, conjunctival injection, or conjunctival petechiae. Oropharynx shows dry mucous membranes with poor dentition. There is no tenderness over the frontal, maxillary or mastoid area. There is no nasal discharge. NECK: Supple without lymphadenopathy or palpable thyromegaly. CHEST: Clear to auscultation bilaterally without a dventitious sounds. The respiratory effort is normal. CARDIOVASCULAR: Regular rate and rhythm with a 2/6 systolic murmur heard throughout. There are no gallops or rubs. ABDOMEN: Soft, nontender, n ondistended. There is no fluid wave present. There is no palpable organomegaly. Bowel sounds are p resent. MUSCULOSKELETAL: There is no cyanosis, clubbing, or edema. SKIN: There are ecchymoses and a few superficial abrasions over both forearms. There are no stigmata of endocarditis. The skin is warm and dry to touch. NEUROLOGIC: Patient is alert and interacts appropriately with the examiner. Cranial nerves 2 through 12 are grossly intact. Sensation is grossly intact. Muscle tone and bulk are normal. LYMPHATICS: No cervical or supraclavicular inguinal. LABORATORY DATA: White blood cell count 5.7, hematocrit 32.2, platelets 125, creatinine 1.0, AST 32, ALT 48, bilirubin 1.0, alkaline phosphatase 126, albumin 2.9. Urinalysis shows 25 to 50 red blood c ells with 50 to 182 white blood cells with trace bacteria. Ascitic fluid shows 361 white blood cells with 18% neutrophils, protein less than 2, INR is 1.3. CT scan of the abdomen and pelvis as outline d above which was reviewed by me today. IMPRESSION: Methicillin-susceptible Staphylococcus aureus bacteremia: Unclear if this is due to annamaria lonephritis given initial complaints of urinary symptoms, or whether he experienced primary bacteremi a with secondary seeding of his urinary tract, which would be more common. He does have some minor s kin breaks which could serve as a portal of entry for staphylococcal bacteremia. He is immunosuppres sed by virtue of his underlying cirrhosis. A murmur is present on exam and he will require echocardi ogram to further evaluate. RECOMMENDATIONS: 1. Ancef 2 g IV q.8 hours. 2. Discontinue ceftriaxone. 3. Transthoracic echocardiogram to assess for endocarditis. 4. Repeat blood cultures to assess for clearing of bacteremia. 5. Hold on PICC line until have documented clearance of bacteremia. Thank you for this consultation. We will continue to follow the patient with you. /[id number]/MODL
[2017-03-25] MEDS: INSULIN LISPRO 100 UNIT/ML SC SCH ×3 (08:33→18:06)
--- NOTE | 2017-03-25 08:48 | HOSPPROG ---
Hospitalist Progress Note Assessment/Plan: Patient is a 66-year-old male with history of cirrhosis secondary to hepatitis- C. He came to the emergency room because of ongoing flank pain. after longer discussion. The patient has been having symptoms for over a week with associated fever and chills for thought he would tough it out. * urinary tract infection/pyelonephritis CT scan does not noted any abscess or hydronephrosis * MSSA bacteremia Possible source is urine. Antibiotics changed to cefazolin CATIE shows no vegetation to get PICC once second set of blood bc is negative *Large pleural effusion noted on echo * abdominal pain/none further He has a small amount of ascites Paracentesis performed to rule out spontaneous bacterial peritonitis which he does not have * compensated cirrhosis Sees Dr. Vanegas in the outpatient setting Not on diuretics Liver enzymes are stable * hyponatremia most likely secondary to hypovolemia Recheck labs in the morning * normocytic anemia follow his labs are close to his baseline * metabolic acidosis secondary to dehydration get repeat labs in a.m. *DM /hx of diabetes/not on treatment A1C 9.8/ average glucose of [address] him on a sliding scale *Plan: Follow-up with 2nd set of blood cultures. Appreciate the Infectious Disease team following Subjective: Dated is starting to feel better today. Continues to have some flank pain Objective: Vital Signs Temp Pulse Resp BP Pulse Ox 37.1 C 74 16 145/76 H 95 03/25/17 05:07 03/25/17 05:07 03/25/17 05:07 03/25/17 05:07 03/25/17 05:07 Microbiology 03/24/17 Unknown Gram Stain - Final Peritoneal Fluid - Aspirate 03/24/17 03/25/17 03/26/17 05:59 05:59 05:59 Intake Total 1180 Balance 1180 PT 15.8 SEC (12.0-15.0) H 03/23/17 22:39 INR 1.26 (0.83-1.16) H 03/23/17 22:39 - Physical Exam Constitutional: no apparent distress, appears nourished, No not in pain Eyes: PERRL Ears, Nose, Mouth, Throat: hearing normal Respiratory: no respiratory distress Skin: warm Musculoskeletal: full muscle strength Neurologic: AAOx3 Psychiatric: interacting appropriately ICD10 Worksheet Patient Problems: Problems Problem Status Onset Pyelonephritis Acute Anemia Acute
[2017-03-25] MEDS: ENOXAPARIN 40 MG/0.4 ML SYR SC SCH (10:35)
[2017-03-25] MEDS: SENNOSIDES/DOCUSATE SODIUM TAB PO SCH ×2 (10:36→20:53)
--- NOTE | 2017-03-25 11:48 | ECHO ---
[id number] + + [address] : : [place] [address] : : [phone] + + Adult Echocardiographic Report + ----+ :Name: MILE MAYER DStudy Date: 03/25/2017 10:10 AM BP: 145/73 mmHg : : Hospital Admission Number: [id number] Location: 387: :: 1950 Gender: Male Height: 68 in : :Age: 66 yrs Race: WH Weight: 176 lb : :Reason For Study: r/o vegetation : : BSA: 1.9 meters2 : :History: MSSA bacteremia : + ----+ MMode/2D Measurements & Calculations IVSd: 0.91 cm LVIDd: 4.3 cmFS: 36.4 % LVLd ap4: 9.4 cm LVPWd: 0.96 cm LVIDs: 2.7 cmEDV(Teich): 81.3 mlEDV(MOD-sp4): 147.0 ml ESV(Teich): 27.3 mlLVLs ap4: 7.2 cm EF(Teich): 66.4 % ESV(MOD-sp4): 51.0 ml EF(MOD-sp4): 65.3 % SV(MOD-sp4): 96.0 ml Normal Measurement Values: + + :LVIDd (3.5-5.7cm) IVSd (0.6-1.1cm) LVPWd (0.6-1.1cm) Aortic Root (2.0-3.7cm)Left Atrium (1.5-4.0cm): :LV Vol(d) (76-115ml) LV Vol(s) (29-48ml) Ejec Fraction (50-65%)PV Mikel (0.6- 1.2m/s) TV Mikel (0.4-1.0m/s) : :MV E Mikel (0.8-1.0m/s)MV A Mikel (0.3-1.0m/s)LVOT Mikel (0.7-1.2m/s) Asc Ao Mikel ( 0.9-1.8m/s) : + + Doppler Measurements & Calculations MV E max mikel: Ao V2 max: LV V1 max: PA V2 max: 117.0 cm/sec 195.0 cm/sec 137.0 cm/sec 118.0 cm/sec MV A max mikel: Ao max PG: LV V1 max PG: PA max P.0 cm/sec 15.2 mmHg 7.5 mmHg 5.6 mmHg MV E/A: 1.0 MV dec time: 0.28 sec TR max mikel: 308.0 cm/sec TR max P.9 mmHg RAP systole: 5.0 mmHg RVSP(TR): 42.9 mmHg Left Ventricle The left ventricle is normal in size and function. There is normal left ventricular wall thickness. Ejection Fraction = 60-65%. Distolic dysfunction is indeterminate. No regional wall motion abnormalities noted. Right Ventricle The right ventricle is normal in size and function. Atria The left atrial size is normal. Right atrial size is normal. Mitral Valve The mitral valve is normal in structure and function. Mobile echo density noted near MV chordea most likely chordea and not vegetation. There is no mitral valve stenosis. There is no mitral regurgitation noted. Tricuspid Valve Vegetation on tricuspid valve leaflet(s). There is no tricuspid valve vegetation. There is no tricuspid stenosis. There is mild tricuspid regurgitation. Right ventricular systolic pressure is 43mmHg. There is Doppler evidence for mild pulmonary hypertension. Aortic Valve The aortic valve is trileaflet. There is no aortic valvular vegetation. There is no aortic stenosis. There is no aortic insufficiency. Pulmonic Valve The pulmonic valve is not well visualized. There is no pulmonic valvular regurgitation. Great Vessels The aortic root is normal size. Pericardium/Pleural There is no pericardial effusion. There is a large pleural effusion. Conclusion A two-dimensional transthoracic echocardiogram with M-mode and Doppler was performed. There is no evidence of a mass or vegetation. This does not rule out endocarditis. The left ventricle is normal in size and function. Ejection Fraction = 60-65%. Mobile echo density noted near MV chordea most likely chordea and not vegetation. There is mild tricuspid regurgitation. Right ventricular systolic pressure is 43mmHg. There is Doppler evidence for mild pulmonary hypertension. There is a large pleural effusion. Final Reading Physician: Conrad Jeronimo signed on 03/25/2017 11:46 AM Ordering Physician: Ad Marcelo Performed By: Violetta Walters
--- NOTE | 2017-03-25 14:32 | PCMIDPN ---
Assessment/Plan: #MSSA bacteremia, likely portal of entry the skin. Echocardiogram showed no evidence of vegetation. peritoneal fluid cell count not suggestive of bacterial infection. -- repeat blood cultures from today are pending, planned PICC line placement when blood cultures are negative at 48 hours, 03/27 -- if blood cultures clear today than no indication for CATIE -- pleural effusion noted on echocardiogram, obtain chest x-ray -- continue cefazolin, may have to adjust as patient desires to come to infusion center daily. Plan 4 weeks, stop date of antibiotics 04/24/2017 # underlying cirrhosis secondary to hepatitis-C, HIV screen was negative Medications cefazolin 2 g IV Q 8 micro 03/23 urine culture MSSA 03/23 blood cx / MSSA 03/25 blood cx 2 pending reviewed with case management Subjective: patient is loquacious, feels slightly improved. His "sort of girlfriend" desires him to quit working at [employer]. No abdominal pain. Left flank pain still persists but is improved compared to admission. No rash or itching Objective: Vital Signs Temp Pulse Resp BP Pulse Ox 37.9 C 79 18 121/64 H 95 03/25/17 12:00 03/25/17 12:00 03/25/17 12:00 03/25/17 12:00 03/25/17 12:00 Microbiology 03/24/17 Unknown Gram Stain - Final Peritoneal Fluid - Aspirate 03/24/17 03/25/17 03/26/17 05:59 05:59 05:59 Intake Total 1180 Balance 1180 - Physical Exam General Appearance: alert, no apparent distress, other ( chronic ill appearance) EENT: PERRL/EOMI, poor dentition, No thrush Respiratory: other ( decreased breath sounds bilateral bases), No accessory muscle use Neck: supple Cardiac/Chest: regular rate, rhythm, systolic murmur Extremities: No pedal edema Abdomen: normal bowel sounds, non-tender, soft Male Genitalia: No meier Skin: jaundice, pallor Neuro/Psych: alert, normal mood/affect, oriented x 3 - Time Spent With Patient Time Spent with Patient: greater than 35 minutes Time Spent with Patient: Greater than 35 minutes spent on this patients care, greater than 50% of time spent counseling, educating, and coordinating care regarding the above mentioned plan. ICD10 Worksheet Patient Problems: Problems Problem Status Onset Pyelonephritis Acute Anemia Acute
[2017-03-26] MEDS: oxyCODONE IR 5 MG TAB PO PRN (02:25)
[2017-03-26] MEDS: ceFAZolin 2 GM/DEXTROSE 100 ML IV SCH ×2 (02:25→11:31)
[2017-03-26 05:41] LABS: ANION GAP 8 mEq/L (8-16); CALCIUM 7.9 mg/dL (8.5-10.4); CARBON DIOXIDE 17 mEq/l (22-31); CHLORIDE 104 mEq/L (97-110); CREATININE 1.1 mg/dL (0.7-1.3); GLOMERULAR FILTRATION RATE > 60; GLUCOSE 134 mg/dL (70-100); POTASSIUM 3.9 mEq/L (3.5-5.2); SODIUM 129 mEq/L (134-144)
[2017-03-26 07:50] VITALS: RESP 18
[2017-03-26] MEDS: INSULIN LISPRO 100 UNIT/ML SC SCH ×2 (08:31→15:28)
--- NOTE | 2017-03-26 10:57 | PCMIDPN ---
Assessment/Plan: 1. MSSA bacteremia: Agree that likely portal of entry is skin. Suspect Staph aureus in the urine is a descending infection. No evidence of metastasis, although will need to evaluate his lumbar back pain again tomorrow. If persists, will need imaging. PICC line tomorrow if blood cultures remain negative. Social Work is in the process of sorting out home antibiotic details with patient. He will likely come to [facility]. Stop date for antibiotics April 24. 2. Difficulty voiding: Will obtain postvoid residuals for now. If patient retaining urine, will need urologic evaluation. 3. Miscellaneous: Patient states his last HIV test was "20 years ago." He agrees to another one. Will order. Subjective: Patient wants to leave for 10 minutes to go feed his ferrets. Says that his low back is hurting. Also complaining of not being able to empty his bladder entirely. No burning with urination. No shaking chills. No nausea vomiting or diarrhea. Objective: Ancef 2 g IV q.8 hours day 2 T-max 37.6degrees Vital Signs Temp Pulse Resp BP Pulse Ox 37.6 C 83 18 138/70 H 95 03/26/17 07:47 03/26/17 07:47 03/26/17 07:47 03/26/17 07:47 03/26/17 07:47 Microbiology 03/24/17 Unknown Gram Stain - Final Peritoneal Fluid - Aspirate Laboratory Results 03/26/17 05:08 03/25/17 03/26/17 03/27/17 05:59 05:59 05:59 Intake Total 1180 141 Balance 1180 141 blood cultures on the no growth so far Previous blood cultures on the 10/20 bottles with MSSA TTE negative Peritoneal fluid negative - Physical Exam General Appearance: alert, no apparent distress EENT: pharynx normal, No thrush Respiratory: lungs clear Cardiac/Chest: systolic murmur Abdomen: non-tender, soft, No peritoneal signs Back: normal inspection Skin: other ( some excoriations on his forearms bilaterally, dorsal aspects), No embolic lesions ICD10 Worksheet Patient Problems: Problems Problem Status Onset Pyelonephritis Acute Anemia Acute
[2017-03-26] MEDS: SENNOSIDES/DOCUSATE SODIUM TAB PO SCH (11:33)
[2017-03-26] MEDS: ENOXAPARIN 40 MG/0.4 ML SYR SC SCH (11:41)
[2017-03-26 12:14] VITALS: BP 145/89; PULSE 84; TEMP 99; O2SAT 96
--- NOTE | 2017-03-26 16:08 | GDS ---
[f rep st] DISCHARGE SUMMARY The patient left against medical advice. DISCHARGE DIAGNOSES: 1. Methicillin-sensitive Staph aureus bacteremia. 2. Pyelonephritis. 4. Abdominal pain. 5. Compensated cirrhosis. 6. Hyponatremia. 7. Normocytic anemia. 8. Metabolic acidosis. 9. Diabetes mellitus. CONSULTATIONS: Infectious Disease. STUDIES AND PROCEDURES DONE: 1. CT of the abdomen and pelvis. 2. Paracentesis. 3. Echocardiogram. PHYSICAL EXAMINATION: GENERAL: The patient is alert. VITAL SIGNS: Afebrile at 37.2, pulse is 84, respiratory rate is 18, blood pressure is 145/89. He is saturating 96% on room air. I have seen and evaluated the patient on the day of discharge. HOSPITAL COURSE: The patient is a 66-year-old male, who presents to the emergency room complaining of ongoing flank pain. He was evaluated and diagnosed with: 1. Pyelonephritis. During this hospitalization, he was started on antibiotic therapy. His symptoms have improved. 2. MSSA bacteremia. The etiology is unclear. I discussed his care with Dr. Crawley of Infectious Disease. The patient will require further antibiotic therapy. We will continue to monitor his blood cultures. If they remain negative , the patient will receive a PICC line. He will continue with outpatient antibiotic therapy through April 24. 4. Abdominal pain. Paracentesis was performed during this hospitalization for further diagnostic information. 5. Compensated cirrhosis. The patient sees Dr. Vanegas in the outpatient setting. He is not on diuretics but may benefit from these. Would not like to start on the diuretics during this time but will follow up with Dr. Vanegas. 6. Hyponatremia. This is stable at 129 and will need to be followed up at the hospital. 7. Normocytic anemia. The patient states he requires periodic transfusions and feels this is secondary to his esophageal varices secondary to his cirrhosis. I have instructed him that I recommend he see a labor economics professor outside the hospital. 8. Metabolic acidosis in the setting of dehydration. This is improving. 9. History of diabetes. He has been recommended to initiate outpatient diabetic regimen he is on a sliding scale during this hospital course and will follow up with his primary care physician. DISPOSITION: The patient has left against medical advice. He feels that he needs to leave to feed his ferrets. He states that he will return to the hospital after his ferrets have been managed. Dr. Crawley and myself have both discussed with the patient that he is likely to be discharged in the next day or two. It is recommended that he remain in the hospital for further management and therapies. He states that he understands this and will return after his ferrets have been fed. DISCHARGE MEDICATIONS: None, based on the patient's leaving against medical advice with desire to return. I spent greater than 35 minutes in the care, coordination, and management of this patient's discharge. /[id number]/MODL MTDD
--- NOTE | 2017-03-28 17:06 | ASDISCHSUM ---
Discharge Information Plan Status:Home with No Needs Medically Cleared to Leave: Discharge Date:03/26/2017 01:04 PM CM D/C Disposition:Against Medical Advice ADT D/C Disposition:Against Medical Advice Projected Discharge Date:03/26/2017 01:04 PM Transportation at D/C:Self Discharge Delay Reason: Follow-Up Date:03/26/2017 01:04 PM Discharge Slot: Final Diagnosis: Placement Information Patient Contact Information Contact Name:LISA Relationship: Address: Home Phone: Work Phone: City: Alternate Phone: State/[place] Code: Email: Financial Information Financial Class: Primary Plan Desc:MEDICARE INPATIENT Primary Plan Number:[id number] Secondary Plan Desc: Secondary Plan Number: Assessment Information [facility] CM Progress Note CM Note CM Note Notes: Spoke w/MD Dan pt will likely dc Wednesday and do outpt infusion for IV abx. Date Signed: 03/25/2017 04:33 PM Electronically Signed By:Maricarmen Lopez Intervention Information Intervention Type:*ROSSY-Signed Date of Service:03/24/2017 11:25 AM Patient Type:Inpatient Staff Member:Brianne Brown Hours: Discipline: Severity: Comment:
== END 2017-03-26 13:04 | disposition left against medical advice (07) | DRG 690 ==
LOC: INTOOBSV 23:03 → F3E 23:45 → OBSVTOIN 03-24 15:06
PROVIDERS: ADMIT Internal Medicine; ATTEND Student in an Organized Health Care Education/Training Program
PROC: 0W9G3ZZ Drainage of Peritoneal Cavity, Percutaneous Approach (ICD-10-PCS; principal; 2017-03-24)
DX: N12 Tubulo-interstitial nephritis, not specified as acute or chronic (principal); R78.81 Bacteremia; B95.61 Methicillin susceptible Staphylococcus aureus infection as the cause of diseases classified elsewhere; K74.60 Unspecified cirrhosis of liver; E87.1 Hypo-osmolality and hyponatremia; D64.9 Anemia, unspecified; E86.0 Dehydration; E87.2 Acidosis; E11.9 Type 2 diabetes mellitus without complications; J90 Pleural effusion, not elsewhere classified; B19.20 Unspecified viral hepatitis C without hepatic coma; R18.8 Other ascites
CPT/HCPCS: 96365; G0378; J0690; J0696; J1650; J1815

== ENCOUNTER 2017-03-26 11:51 | Inpatient (IN) | payer OTHER ==
[2017-03-26] MEDS ORDERED: ONDANSETRON DISINTEGRATING 4 MG TAB PO PRN (14:58)
[2017-03-26] MEDS ORDERED: ONDANSETRON 4 MG/2 ML VIAL IVP PRN (14:58)
[2017-03-26] MEDS ORDERED: ACETAMINOPHEN 325 MG TAB PO PRN (15:22)
--- NOTE | 2017-03-26 15:28 | GHP ---
[f rep st] HISTORY AND PHYSICAL DATE OF ADMISSION: 03/26/2017 CHIEF COMPLAINT: Returning to the hospital. HISTORY OF PRESENT ILLNESS: The patient is a 66-year-old male, presented to the hospital on 03/23/2017, with complaints of flank pain. He was evaluated and diagnosed with pyelonephritis. During the hospitalization, he was also diagnosed with MSSA bacteremia. While the patient was in the hospital setting, waiting for his blood cultures to result, he felt that it was necessary to leave the hospital and go home to feed his spirits. He left against medical advice, and now has returned to the hospital for further medical management. Patient denies any nausea, vomiting, diarrhea. Denies any fever, sweats, night chills. Denies any dyspnea, shortness of breath, or chest pain. PAST MEDICAL HISTORY: 1. MSSA bacteremia. 2. Compensated cirrhosis. 3. Hepatitis C. 4. Coronary artery disease. 5. Esophageal varices. 6. Type 2 diabetes. 7. Anemia. PAST SURGICAL HISTORY: Cholecystectomy. FAMILY HISTORY: Colon cancer. HOME MEDICATIONS: None. ALLERGIES: Penicillin. 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 He denies any alcohol, tobacco, or illicit drugs. PHYSICAL EXAMINATION: GENERAL: The patient is alert. VITAL SIGNS: Afebrile at 37.2, pulse 84, respiratory rate is 18, blood pressure is 145/89. He is saturating 96% on room air. HEENT: Normocephalic, atraumatic. Mucosal membranes are moist. Pupils equal, round, reactive to light. RESPIRATORY: Lungs are clear to auscultation bilaterally. No rhonchi or wheezes noted. CARDIOVASCULAR: Regular rate and rhythm. No gallop or murmur appreciated. GASTROINTESTINAL/ABDOMEN: Bowel sounds are positive. Mildly distended. No guarding, rigidity noted. MUSCULOSKELETAL: Upper and lower extremity strength 5/5. SKIN: Without rashes or lesions. NEUROLOGIC: The patient is intact. LABORATORY EVALUATION: Sodium is 129 with a glucose of 238. REVIEW OF SYSTEMS: A comprehensive 10-point review of systems is negative, other than noted in the HPI. ASSESSMENT/PLAN: 1. Methicillin-sensitive Staphylococcus aureus bacteremia. The patient will remain in the hospital and further watching of his blood cultures. His preliminary results are negative after 24 hours. We will continue to monitor these. If his blood cultures remain negative, he will receive a PICC line on 03/27/2017, and further antibiotic regimen will be arranged in the outpatient setting. He would like to go to [facility] for daily antibiotic regimen. He has been seen by Infectious Disease, and their recommendations are for him to continue IV antibiotic therapy through April 24. 2. Pyelonephritis. The patient has been treated and has no further symptoms. Continue to monitor this. 3. Abdominal pain. This has resolved. He is tolerating a regular diet. We will continue to monitor. 4. Compensated cirrhosis. He has no signs of complication at this time. He did previously have a paracentesis. Will be followed by his primary cell coverer, Dr. Vanegas. 5. Hyponatremia. His laboratory values will be checked in the morning. This is multifactorial, and we will continue to monitor laboratory evaluations. He is asymptomatic. 6. Normocytic anemia. He does appear to be close to his baseline. He and I have discussed this, and we recommend following up with a stunt woman of his choice. 7. Diabetes. The patient's hemoglobin A1c is 9.8. I recommended re- initiation of glucose medications. However, the patient is refusing at this time and wishes to wait till he sees his primary care physician. 8. Admission. He will be admitted to inpatient status. He will remain in the hospital for further evaluation and management of his current ongoing medical conditions. Further action will be taken as needed during the patient's hospitalization. /[id number]/MODL MTDD
[2017-03-26] MEDS: ACETAMINOPHEN 325 MG TAB PO PRN (18:02)
[2017-03-26] MEDS: oxyCODONE IR 5 MG TAB PO PRN (18:40)
[2017-03-26] MEDS: ceFAZolin 2 GM/DEXTROSE 100 ML IV SCH (18:41)
[2017-03-26] MEDS ORDERED: D50W 25 GM/50 ML SYR IVP PRN (20:07)
[2017-03-27] MEDS: ceFAZolin 2 GM/DEXTROSE 100 ML IV SCH ×3 (01:35→18:37)
[2017-03-27] MEDS: ACETAMINOPHEN 325 MG TAB PO PRN (01:36)
[2017-03-27 05:01] LABS: % IMMATURE GRANULYOCYTES 0.4 % (0.0-1.1); ABSOLUTE IMMATURE GRANULOCYTES 0.03 10^3/uL (0.00-0.10); ADD DIFF? NO; ADD MORPH? NO; ADD SCAN? NO; ATYPICAL LYMPHOCYTE FLAG 0 (0-99); FRAGMENT RBC FLAG 0 (0-99); HEMATOCRIT 29.4 % (40.0-51.0); HEMOGLOBIN 9.3 g/dL (13.7-17.5); LEFT SHIFT FLG 0 (0-99); LIPEMIA HEMOLYSIS FLAG 80 (0-99); MEAN CELL HEMOGLOBIN 25.1 pg (27.9-34.1); MEAN CELL HEMOGLOBIN CONCENTR. 31.6 g/dL (32.4-36.7); MEAN CELL VOLUME 79.2 fL (81.5-99.8); MEAN PLATELET VOLUME 9.7 fL (8.7-11.7); PLATELET CLUMPS FLAG 0 (0-99); PLATELET COUNT 129 10^3/uL (150-400); RED BLOOD CELL COUNT 3.71 10^6/uL (4.40-6.38); RED CELL DISTRIBUTION WIDTH 16.5 % (11.5-15.2)
[2017-03-27 05:16] LABS: ANION GAP 9 mEq/L (8-16); CALCIUM 7.7 mg/dL (8.5-10.4); CARBON DIOXIDE 19 mEq/l (22-31); CHLORIDE 106 mEq/L (97-110); GLOMERULAR FILTRATION RATE > 60; GLUCOSE 144 mg/dL (70-100); SODIUM 134 mEq/L (134-144)
[2017-03-27] MEDS: oxyCODONE IR 5 MG TAB PO PRN (09:10)
[2017-03-27] MEDS: INSULIN LISPRO 100 UNIT/ML SC SCH ×3 (09:51→21:41)
[2017-03-27] MEDS: ENOXAPARIN 30 MG/0.3 ML SYR SC SCH (10:20)
[2017-03-27 11:27] LABS: % SATURATION 8 % (20-55); TOTAL IRON BINDING CAPACITY 289 ug/dL (260-490)
[2017-03-27 11:54] LABS: FERRITIN - BCH 39.5 ng/mL (17.9-464.0)
[2017-03-27] MEDS ORDERED: ALTEPLASE 2 MG VIAL IVP PRN (12:20)
[2017-03-27] MEDS: FERROUS SULFATE 140 MG TAB.ER PO SCH (12:52)
--- NOTE | 2017-03-27 17:05 | PCMIDPN ---
Assessment/Plan: Assessment/Plan: 1. MSSA Bacteremia:- - f/u blood cx from 03/25 ngtd - picc line placed today - TTe negative. -c/o ongong new onset back pain x 10 days now with some radiating pain -Feel MRI lumbar spine warranted given above to r/o deeper process which would extend and alter treatment -Reviewed plan of care with patient. - IF mri neg, then will plan for ceftriaxone to be done at 3E. meds Ancef Subjective: Afebrile. pt left AMA yesterday and then returned last evening. he states that he continues to have lower back pain that gets to 8/10 in nature. Relieved with pain meds. does c/o shooting pain down right thigh. denies sob or diarrhea. does feel like he may not be emptying bowels fully. Objective: Vital Signs Temp Pulse Resp BP Pulse Ox 37.1 C 63 18 124/69 H 94 03/27/17 11:26 03/27/17 11:26 03/27/17 11:26 03/27/17 11:26 03/27/17 11:26 Laboratory Results 03/27/17 04:49 03/27/17 04:49 - Physical Exam General Appearance: alert, no apparent distress Respiratory: lungs clear Cardiac/Chest: regular rate, rhythm Abdomen: normal bowel sounds, non-tender, soft, distended Back: other (tenderness lower paraspinal area. ) ICD10 Worksheet Patient Problems: Problems Problem Status Onset Anemia Acute Pyelonephritis Acute
[2017-03-27] MEDS ORDERED: GADOBUTROL 10 ML VIAL IVP ONE (17:45)
[2017-03-27 19:42] VITALS: RESP 16
[2017-03-28] MEDS: ceFAZolin 2 GM/DEXTROSE 100 ML IV SCH (01:33)
[2017-03-28] MEDS: oxyCODONE IR 5 MG TAB PO PRN (02:20)
[2017-03-28 08:06] VITALS: BP 118/59; PULSE 67; TEMP 99.1; O2SAT 95
[2017-03-28] MEDS: FERROUS SULFATE 140 MG TAB.ER PO SCH (08:23)
[2017-03-28] MEDS: ENOXAPARIN 30 MG/0.3 ML SYR SC SCH (08:23)
[2017-03-28] MEDS: INSULIN LISPRO 100 UNIT/ML SC SCH (08:23)
--- NOTE | 2017-03-28 10:14 | PCMIDPN ---
Assessment/Plan: Assessment/Plan: 1. MSSA Bacteremia:- - f/u blood cx from 03/25 ngtd - picc line placed - TTe negative. -lumbar MRI without abscess/osteo -Reviewed plan of care with patient. -change to ceftriaxone. plan for 4 weeks treatment -f/u with Dr. Marcelo in the OP. will arrange for appt. meds Ancef Subjective: afebrile. still with intermittent low back pain. denies numbness down LE. denies sob, abd pain or diarrhea. Objective: Vital Signs Temp Pulse Resp BP Pulse Ox 37.3 C 67 16 118/59 L 95 03/28/17 08:00 03/28/17 08:00 03/28/17 08:00 03/28/17 08:00 03/28/17 08:00 Laboratory Results 03/27/17 04:49 03/27/17 04:49 - Physical Exam General Appearance: alert, no apparent distress Respiratory: lungs clear Cardiac/Chest: regular rate, rhythm Extremities: other (picc line RUE), No swelling Abdomen: normal bowel sounds, non-tender, soft, No distended - Time Spent With Patient Time Spent with Patient: greater than 35 minutes Time Spent with Patient: Greater than 35 minutes spent on this patients care, greater than 50% of time spent counseling, educating, and coordinating care regarding the above mentioned plan. ICD10 Worksheet Patient Problems: Problems Problem Status Onset Anemia Acute Pyelonephritis Acute
--- NOTE | 2017-03-28 10:16 | PDIAF ---
- Diagnosis Diagnosis: MSSA bacteremia Code Status: Full Code - Medication Management Discharge Medications: Medications to Continue on Transfer Ferrous Sulfate [Slow Fe 140 MG (*)] 140 mg PO DAILY #30 tab.er 03/27/17 [Last Taken Unknown] [facility] Antibiotics: ceftriaxone 1g IV daily Supervising Librarian Antibiotic Stop Date: 04/22/17 Discharge Medications: Refer to the Discharge Home Medication list for PRN reason. PICC Care - Routine: Yes - Orders Diet Recommendation: ADA 2000 consistent carb - Labs/Radiology CBC Date: 03/29/17 CMP Date: 03/29/17 Call or Fax Lab and Imaging Results to: fax to Dr. Marcelo ([phone]) - Follow Up Care Current Providers and Referrals: ALIREZA LAY [Other] Ad Marcelo MD [Medical Doctor] - (f/u in 7-10 days.)
[2017-03-28] MEDS ORDERED: LIDOCAINE 5% 1 EA PATCH TD SCH (12:15)
--- NOTE | 2017-03-28 17:05 | PDDCSUM ---
Discharge Summary Discharge Summary: DISCHARGE SUMMARY FOLLOW-UP ITEMS: Outpatient labs and follow up with Dr. Marcelo DATE OF ADMISSION: 03/26/17 DATE OF DISCHARGE: 03/28/2017 DISCHARGE DIAGNOSES: 1. MSSA bacteremia 2. Degenerative disc disease, chronic lower back pain 3. Anemia, iron deficient component as well as chronic inflammatory disease 4. Diabetes mellitus type 2 5. Chronic cirrhosis CONSULTATIONS: Infectious Disease PROCEDURES / IMAGING: Lumbar spine MRI demonstrating no evidence of abscess or osteomyelitis, transthoracic echocardiogram demonstrating no evidence of agitation, PICC line inserted CHIEF COMPLAINT: Acute lower back pain SUBJECTIVE: Patient continues to experience some lower back pain, it is alleviated with hot blankets PHYSICAL EXAM ON DISCHARGE: Systolic blood pressure is 120, heart rate 70, afebrile overnight, satting well on room air, alert awake oriented x3, no apparent distress, panels currently 3/ 10 LABS ON DISCHARGE: Iron level 23, TIBC 290, saturation 8%, hemoglobin 9.3 HOSPITAL COURSE BY PROBLEM: 1. MSSA bacteremia. Patient recently diagnosed, placed on IV Ancef, follow-up blood cultures no growth on 03/25, patient is 4 weeks of IV antibiotics from that date. PICC line was inserted and patient will receive ceftriaxone through the infusion center. 2. Degenerative disc disease. Patient presented with acute on chronic lower back pain, mostly right-sided, most likely secondary to degenerative disc disease with some disc bulge and stenosis on MRI. The patient was admitted to the hospital to rule out diskitis or abscess with MRI. These complications were affectively ruled out. The patient did have difficult to manage pain control on 03/27, and required ongoing inpatient hospitalization. Given patient 's aversion for opiate medications but his relatively low level of activity with his current pain, recommended a Lidoderm patch as well as alternating heat and ice. Also recommended physical therapy and outpatient script was provided. I recommended that he follow up with his primary care provider to help manage this issue. I also recommended initiation of low-dose gabapentin, and avoiding nonsteroidal anti-inflammatory medications and Tylenol, given his underlying cirrhosis. 3. Anemia. Patient has an iron deficient component he should be on oral iron and have his outpatient labs recheck. 4. Diabetes mellitus type 2. Chronic, patient appears to have an element of neuropathy, we discussed this the patient would like to initiate gabapentin at this time. He was started 300 mg at bedtime, and should be up titrated in the outpatient setting through his primary care provider office. Also recommended tighter blood glucose control, and he will talk to his primary care provider about this issue. 5. Cirrhosis. Chronic, patient will continue to follow up with Dr. Montana Vanegas for this issue, he may initiate on hepatitis C treatment once he has insurance coverage. DISCHARGE MEDICATIONS: Please see official discharge medication reconciliation sheet in chart , 5 Lidoderm patch, gabapentin 300 mg at bedtime, iron sulfate daily. DISCHARGE INSTRUCTIONS: Please follow up with Infectious Disease 1st, primary care provider 2nd, GI the [facility] 3rd. TIME SPENT: Greater than 30 minutes were spent on direct patient care, as well as discharge planning and preparation.
--- NOTE | 2017-03-28 17:07 | ASDISCHSUM ---
Discharge Information Plan Status:IV ABX/Infusion Medically Cleared to Leave: Discharge Date:03/28/2017 01:28 PM CM D/C Disposition: ADT D/C Disposition:Home, Routine, Self-Care Projected Discharge Date:03/28/2017 12:00 AM Transportation at D/C:None or Unknown Discharge Delay Reason: Follow-Up Date:03/28/2017 12:00 AM Discharge Slot: Final Diagnosis:UTI, pyelonephritis Placement Information Patient Contact Information Contact Name:LISA Relationship: Address: Home Phone: Work Phone: City: Alternate Phone: State/[place] Code: Email: Financial Information Financial Class: Primary Plan Desc:MEDICARE INPATIENT Primary Plan Number:[id number] Secondary Plan Desc: Secondary Plan Number: Assessment Information [facility] CM Progress Note CM Note CM Note Notes: CM met w/ pt to discuss the care of his ferrets if his hospitalization at [facility] conitnues. Pt reports that he has a friend and a girlfriend that can care for his animals. Pt will most likely discharge independent when medically stable. Pt requested that CM contacts his nurse to inform them of his increasing pain. CM available for any changes. Date Signed: 03/26/2017 05:14 PM Electronically Signed By:Sabrina Simons [facility] CM Progress Note CM Note CM Note Notes: Pt discharging home today w/PICC. He will receive IV ABX at the [facility]fusion [facility] starting tomorrow at 11:30. Pt understands he is to check in through the ED tomorrow only for his first appt and after that come directly to . Pt encouraged to f/u with [facility] to resume care and oversight. Date Signed: 03/28/2017 01:51 PM Electronically Signed By:Kelli Barbour Intervention Information
[2017-03-28] MEDS ORDERED: PATCH REMOVAL 1 EA PATCH TD SCH (21:00)
== END 2017-03-28 13:28 | disposition home or self-care (01) | DRG 690 ==
LOC: F3E 14:31
PROVIDERS: ADMIT Internal Medicine Pulmonary Disease; ATTEND Internal Medicine
PROC: 02HV33Z Insertion of Infusion Device into Superior Vena Cava, Percutaneous Approach (ICD-10-PCS; principal; 2017-03-27)
DX: N12 Tubulo-interstitial nephritis, not specified as acute or chronic (principal); E87.1 Hypo-osmolality and hyponatremia; B95.61 Methicillin susceptible Staphylococcus aureus infection as the cause of diseases classified elsewhere; K74.60 Unspecified cirrhosis of liver; E11.9 Type 2 diabetes mellitus without complications; M51.36 Other intervertebral disc degeneration, lumbar region; D50.9 Iron deficiency anemia, unspecified; D63.8 Anemia in other chronic diseases classified elsewhere; M51.26 Other intervertebral disc displacement, lumbar region
CPT/HCPCS: A9585; C1751; J0690; J0696; J1650

== ENCOUNTER 2018-11-02 16:10 | Observation (INO) | payer OTHER ==
--- NOTE | 2018-11-02 16:36 | EDPHY ---
H & P Time Seen by Provider: 11/02/18 16:24 HPI/ROS: CHIEF COMPLAINT: I am having kidney pain HISTORY OF PRESENT ILLNESS: 68-year-old man was partying with friends last night between 9:00 p.m. And 3:00 a.m. Did cocaine for the 1st time in several decades. Presents driving himself to the emergency department with a feeling of generalized fatigue and kidney pain which he describes as pain on both sides of his back. Of note he had was admitted in March of 2017 for methicillin sepsis due to UTI. Denies fever or chills. Denies urinary symptoms. He also has a little bit of "weakness" in his chest substernal and on the left side. REVIEW OF SYSTEMS: Eye: no change in vision ENT: no sore throat Cardiac: No palpitations or syncope Pulmonary: no cough or SOB Abdomen: no vomiting, diarrhea, abdominal pain Musculoskeletal: HPI Skin: no rash Neuro: no headache Constitutional: no fever : no urinary symptoms A comprehensive 10 point review of systems is otherwise negative aside from elements mentioned in the history of present illness. PAST MEDICAL HISTORY: Includes anemia, cholecystectomy, methicillin sensitive bacteremia from UTI, diabetes, varices, coronary disease with stenting Social history: Cocaine as in HPI General Appearance: Patient is sleepy but opens eyes spontaneously and is conversant but he is very hard of hearing. Eyes: No scleral icterus. ENT, Mouth: Normal mucous membranes. Respiratory: Normal respiratory effort, breath sounds equal, lungs are clear to auscultation. Cardiovascular: Regular rate and rhythm. Gastrointestinal: Abdomen is soft and non tender. Neurological: Alert, face symmetric, normal motor and sensory in extremities. Skin: No zoster. Musculoskeletal: No peripheral edema. Psychiatric: Not agitated. Emergency Department course/MDM: Plan for EKG, labs to include troponin and CBC and chemistry, urinalysis. 1712: Elevated troponin, oral aspirin 324 mg, and admission for cardiac evaluation. Urine pending. 181: Does not have chest pain, urinalysis negative for infection. Smoking Status: Never smoked Constitutional: Initial Vital Signs Temperature (C) 36.5 C 11/02/18 16:14 Heart Rate 90 11/02/18 16:14 Respiratory Rate 16 11/02/18 16:14 Blood Pressure 158/93 H 11/02/18 16:14 O2 Sat (%) 97 11/02/18 16:14 O2 Delivery Mode Room Air Allergies/Adverse Reactions: Penicillins Allergy (Unknown, Verified 03/19/17 16:16) Other-Enter Comments Home Medications: Medication Instructions Recorded Diclofenac Sodium [Diclofenac 1 drop LEFTEYE BID 11/02/18 Sodium] Pantoprazole Sodium [Protonix 40mg 40 mg PO DAILY 11/02/18 (*)] Prednisolone Acetate [Prednisolone 1 drop LEFTEYE QID 11/02/18 Acetate] metFORMIN HCL [Metformin HCl] 500 mg PO BID 11/02/18 Medical Decision Making - Diagnostics EKG Interpretation: 12-lead EKG interpreted by me; official reading is in computer system. My interpretation is sinus rhythm with early RS transition and no acute ST changes. Rate 77. Differential Diagnosis: Differential for elevated troponin considered including but not limited to renal failure, acute myocardial infarction, unstable angina, myocarditis, vasospasm. Consult/Admit Bed Type: [place] [id number] - Data Points Laboratory Results: Laboratory Results 11/02/18 16:37 11/02/18 16:37 11/02/18 11/02/18 11/02/18 16:43 16:37 16:37 WBC RBC Hgb Hct MCV MCH MCHC RDW Plt Count MPV Neut % (Auto) Lymph % (Auto) [place] % (Auto) Eos % (Auto) Baso % (Auto) Nucleat RBC Rel Count Absolute Neuts (auto) Absolute Lymphs (auto) Absolute Monos (auto) Absolute Eos (auto) Absolute Basos (auto) Absolute Nucleated RBC Immature Gran % Immature Gran # Sodium 134 mEq/L L mEq/L (135-145) Potassium 3.5 mEq/L mEq/L (3.5-5.2) Chloride 102 mEq/L mEq/L (97-110) Carbon Dioxide 21 mEq/l L mEq/l (22-31) Anion Gap 11 mEq/L mEq/L (6-14) BUN 13 mg/dL mg/dL (7-23) Creatinine 0.9 mg/dL mg/dL (0.7-1.3) Estimated GFR > 60 Glucose 247 mg/dL H mg/dL (70-100) Calcium 9.0 mg/dL mg/dL (8.5-10.4) Creatine Kinase 333 IU/L H IU/L (0-224) CK-MB (CK-2) Fraction Pending CK-MB (CK-2) % Pending Creatine Kinase Interp Pending POC Troponin I 0.19 ng/mL H ng/mL (0.00-0.08) Troponin I 0.177 ng/mL H ng/mL (0.000-0.034) 11/02/18 16:37 WBC 6.62 10^3/uL 10^3/uL (3.80-9.50) RBC 4.85 10^6/uL 10^6/uL (4.40-6.38) Hgb 15.1 g/dL g/dL (13.7-17.5) Hct 42.8 % % (40.0-51.0) MCV 88.2 fL fL (81.5-99.8) MCH 31.1 pg pg (27.9-34.1) MCHC 35.3 g/dL g/dL (32.4-36.7) RDW 14.0 % % (11.5-15.2) Plt Count 89 10^3/uL L 10^3/uL (150-400) MPV 10.1 fL fL (8.7-11.7) Neut % (Auto) 78.0 % H % (39.3-74.2) Lymph % (Auto) 11.9 % L % (15.0-45.0) Mcnairy % (Auto) 7.9 % % (4.5-13.0) Eos % (Auto) 1.1 % % (0.6-7.6) Baso % (Auto) 0.6 % % (0.3-1.7) Nucleat RBC Rel Count 0.0 % % (0.0-0.2) Absolute Neuts (auto) 5.17 10^3/uL 10^3/uL (1.70-6.50) Absolute Lymphs (auto) 0.79 10^3/uL L 10^3/uL (1.00-3.00) Absolute Monos (auto) 0.52 10^3/uL 10^3/uL (0.30-0.80) Absolute Eos (auto) 0.07 10^3/uL 10^3/uL (0.03-0.40) Absolute Basos (auto) 0.04 10^3/uL 10^3/uL (0.02-0.10) Absolute Nucleated RBC 0.00 10^3/uL 10^3/uL (0-0.01) Immature Gran % 0.5 % % (0.0-1.1) Immature Gran # 0.03 10^3/uL 10^3/uL (0.00-0.10) Sodium Potassium Chloride Carbon Dioxide Anion Gap BUN Creatinine Estimated GFR Glucose Calcium Creatine Kinase CK-MB (CK-2) Fraction CK-MB (CK-2) % Creatine Kinase Interp POC Troponin I Troponin I Medications Given: Discontinued Medications Aspirin (Aspirin) 324 mg PO EDNOW ONE Stop: 11/02/18 16:54 Last Admin: 11/02/18 17:03 Dose: 324 mg Sodium Chloride (Ns) 1,000 mls @ 0 mls/hr IV ONCE ONE; Wide Open PRN Reason: Protocol Stop: 11/02/18 16:38 Last Admin: 11/02/18 16:40 Dose: 1,000 mls Sodium Chloride (Ns) 1,000 mls @ 0 mls/hr IV EDNOW ONE; Wide Open PRN Reason: Protocol Stop: 11/02/18 17:28 Last Admin: 11/02/18 17:37 Dose: 1,000 mls Point of Care Test Results: Chemistry 11/02/18 16:43 POC Troponin I 0.19 ng/mL H ng/mL (0.00-0.08) Departure - Departure Disposition: [facility] Inpatient Acute Clinical Impression: Troponin level elevated Condition: Good
[2018-11-02] MEDS ORDERED: NS 1,000 ML IV ONE ×2 (16:37→17:27)
[2018-11-02] MEDS ORDERED: ASPIRIN 81 MG CHEWABLE TAB PO ONE (16:53)
[2018-11-02 17:09] LABS: CREATINE KINASE 333 IU/L (0-224)
[2018-11-02 17:10] LABS: PLATELET COUNT 89 10^3/uL (150-400)
--- NOTE | 2018-11-02 17:25 | CPEKG ---
Test Reason : OPEN Blood Pressure : / mmHG Vent. Rate : 077 BPM Atrial Rate : 077 BPM P-R Int : 195 ms QRS Dur : 078 ms QT Int : 408 ms P-R-T Axes : 028 043 054 degrees QTc Int : 462 ms Sinus rhythm Probable left atrial enlargement Abnormal R-wave progression, early transition Confirmed by Edith Jimenez ([id number]) on 11/02/2018 5:25:11 PM Referred By: EDITH JIMENEZ Confirmed By:Edith Jimenez
[2018-11-02] MEDS ORDERED: ONDANSETRON 4 MG/2 ML VIAL IVP PRN (18:44)
[2018-11-02] MEDS ORDERED: ONDANSETRON DISINTEGRATING 4 MG TAB PO PRN (18:44)
[2018-11-02] MEDS ORDERED: ACETAMINOPHEN 325 MG TAB PO PRN (18:44)
[2018-11-02] MEDS ORDERED: D50W 25 GM/50 ML SYR IVP PRN (18:46)
--- NOTE | 2018-11-02 19:09 | PDGENHP ---
<Maria R Li - Last Filed: 11/02/18 21:37> History and Physical - Chief Complaint Chest pain - History of Present Illness This is a 68-year-old male with history of diabetes 2, history of hepatitis-C, and coronary artery disease with stenting presents to the emergency room after partying with his friends last night between 9:00 p.m. to 3:00 a.m. He admits to doing cocaine for the 1st time in decades; he used to be addicted to cocaine and would do this on a daily basis 40 years ago. He thought he could "handle it " and approximately did half a gram of cocaine last night. He now presented with the feeling he was going to , bilateral kidney pain, difficulty urinating and burning sensation with urination and left-sided chest pain described as a dull pressure which has now resolved. EKG showed sinus rhythm with the possibility of left atrial enlargement, no ST elevation and does have an elevated troponin initially at 0.19. He is being admitted for further workup, treatment, and monitoring. History Information - Allergies/Home Medication List Allergies/Adverse Reactions: Penicillins Allergy (Unknown, Verified 03/19/17 16:16) Other-Enter Comments Home Medications: Diclofenac Sodium [Diclofenac Sodium] 1 drop LEFTEYE BID 11/02/18 [Last Taken Unknown] Pantoprazole Sodium [Protonix 40mg (*)] 40 mg PO DAILY 11/02/18 [Last Taken Unknown] Prednisolone Acetate [Prednisolone Acetate] 1 drop LEFTEYE QID 11/02/18 [Last Taken Unknown] metFORMIN HCL [Metformin HCl] 500 mg PO BID 11/02/18 [Last Taken Unknown] I have personally reviewed and updated: family history, medical history, social history Past Medical History: Anemia, MSSA from UTI, diabetes type 2, varices, coronary artery disease status post stents, and history of hepatitis C - Surgical History Reports: cholecystectomy - Family History Positive for: non-pertinent - Social History Smoking Status: Never smoked Alcohol Use: None Drug Use: Cocaine Review of Systems Review of Systems: ROS: 10pt was reviewed & negative except for what was stated in HPI & below Physical Exam Physical Exam: Lab data and imaging were reviewed. White blood count: 6.62 Hemoglobin hematocrit: 15.1 and 42.8 Platelet count: 89 Sodium: 134 Potassium: 3.5 Chloride: 102 Carbon dioxide: 21 BUN/Cr: 13/0.3 Troponin: 0.19 Creatinine kinase: 333 CK-MB Fraction: 9.29 EKG: See HPI Temp Pulse Resp BP Pulse Ox 36.4 C 75 20 129/82 H 100 11/02/18 18:25 11/02/18 18:25 11/02/18 18:25 11/02/18 18:25 11/02/18 18:25 O2 (L/minute) 2 Constitutional: no apparent distress, appears nourished, not in pain Eyes: PERRL, anicteric sclera, EOMI Ears, Nose, Mouth, Throat: moist mucous membranes, ears appear normal, no oral mucosal ulcers, hard of hearing Cardiovascular: regular rate and rhythym, no murmur, rub, or gallop, No edema Peripheral Pulses: 2+: dorsalis-pedis (R), dorsalis-pedis (L) Respiratory: no respiratory distress, no rales or rhonchi, clear to auscultation Gastrointestinal: tenderness Genitourinary: no bladder fullness, no bladder tenderness Skin: warm, normal color, no rashes or abrasions, no fluctuance, no induration, No mottled Musculoskeletal: full muscle strength, no muscle tenderness, normal joint ROM, no joint effusions Neurologic: AAOx3, sensation intact bilaterally, CN II-XII Intact Psychiatric: interacting appropriately, not anxious, not encephalopathic, thought process linear Lymph, Heme, Immunologic: no cervical LAD, no supraclavicular LAD Lab Data & Imaging Review 11/02/18 16:37 11/02/18 16:37 WBC 6.62 10^3/uL (3.80-9.50) 11/02/18 16:37 RBC 4.85 10^6/uL (4.40-6.38) 11/02/18 16:37 Hgb 15.1 g/dL (13.7-17.5) 11/02/18 16:37 Hct 42.8 % (40.0-51.0) 11/02/18 16:37 MCV 88.2 fL (81.5-99.8) 11/02/18 16:37 MCH 31.1 pg (27.9-34.1) 11/02/18 16:37 MCHC 35.3 g/dL (32.4-36.7) 11/02/18 16:37 RDW 14.0 % (11.5-15.2) 11/02/18 16:37 Plt Count 89 10^3/uL (150-400) L 11/02/18 16:37 MPV 10.1 fL (8.7-11.7) 11/02/18 16:37 Neut % (Auto) 78.0 % (39.3-74.2) H 11/02/18 16:37 Lymph % (Auto) 11.9 % (15.0-45.0) L 11/02/18 16:37 [place] % (Auto) 7.9 % (4.5-13.0) 11/02/18 16:37 Eos % (Auto) 1.1 % (0.6-7.6) 11/02/18 16:37 Baso % (Auto) 0.6 % (0.3-1.7) 11/02/18 16:37 Nucleat RBC Rel Count 0.0 % (0.0-0.2) 11/02/18 16:37 Absolute Neuts (auto) 5.17 10^3/uL (1.70-6.50) 11/02/18 16:37 Absolute Lymphs (auto) 0.79 10^3/uL (1.00-3.00) L 11/02/18 16:37 Absolute Monos (auto) 0.52 10^3/uL (0.30-0.80) 11/02/18 16:37 Absolute Eos (auto) 0.07 10^3/uL (0.03-0.40) 11/02/18 16:37 Absolute Basos (auto) 0.04 10^3/uL (0.02-0.10) 11/02/18 16:37 Absolute Nucleated RBC 0.00 10^3/uL (0-0.01) 11/02/18 16:37 Immature Gran % 0.5 % (0.0-1.1) 11/02/18 16:37 Immature Gran # 0.03 10^3/uL (0.00-0.10) 11/02/18 16:37 Sodium 134 mEq/L (135-145) L 11/02/18 16:37 Potassium 3.5 mEq/L (3.5-5.2) 11/02/18 16:37 Chloride 102 mEq/L (97-110) 11/02/18 16:37 Carbon Dioxide 21 mEq/l (22-31) L 11/02/18 16:37 Anion Gap 11 mEq/L (6-14) 11/02/18 16:37 BUN 13 mg/dL (7-23) 11/02/18 16:37 Creatinine 0.9 mg/dL (0.7-1.3) 11/02/18 16:37 Estimated GFR > 60 11/02/18 16:37 Glucose 247 mg/dL (70-100) H 11/02/18 16:37 Calcium 9.0 mg/dL (8.5-10.4) 11/02/18 16:37 Total Bilirubin 2.8 mg/dL (0.1-1.4) H 11/02/18 16:37 Conjugated Bilirubin 0.3 mg/dL (0.0-0.5) 11/02/18 16:37 Unconjugated Bilirubin 2.5 mg/dL (0.0-1.1) H 11/02/18 16:37 AST 46 IU/L (17-59) 11/02/18 16:37 ALT 43 IU/L (21-72) 11/02/18 16:37 Alkaline Phosphatase 87 IU/L (38-126) 11/02/18 16:37 Creatine Kinase 333 IU/L (0-224) H 11/02/18 16:37 CK-MB (CK-2) Fraction 9.29 ng/mL (0.00-4.55) H 11/02/18 16:37 CK-MB (CK-2) % 2.8 % (0.0-4.0) 11/02/18 16:37 Creatine Kinase Interp NEGATIVE (NEGATIVE) 11/02/18 16:37 POC Troponin I 0.19 ng/mL (0.00-0.08) H 11/02/18 16:43 Troponin I 0.177 ng/mL (0.000-0.034) H 11/02/18 16:37 Total Protein 7.5 g/dL (6.3-8.2) 11/02/18 16:37 Albumin 3.8 g/dL (3.5-5.0) 11/02/18 16:37 Urine Color PALE YELLOW 11/02/18 17:35 Urine Appearance CLEAR 11/02/18 17:35 Urine pH 7.0 (5.0-7.5) 11/02/18 17:35 Ur Specific [place] 1.003 (1.002-1.030) 11/02/18 17:35 Urine Protein NEGATIVE (NEGATIVE) 11/02/18 17:35 Urine Ketones NEGATIVE (NEGATIVE) 11/02/18 17:35 Urine Blood 1+ (NEGATIVE) H 11/02/18 17:35 Urine Nitrate NEGATIVE (NEGATIVE) 11/02/18 17:35 Urine Bilirubin NEGATIVE (NEGATIVE) 11/02/18 17:35 Urine Urobilinogen NEGATIVE EU (0.2-1.0) 11/02/18 17:35 Ur Leukocyte Esterase NEGATIVE (NEGATIVE) 11/02/18 17:35 Urine RBC 1-3 /hpf (0-3) 11/02/18 17:35 Urine WBC 1-3 /hpf (0-3) 11/02/18 17:35 Ur Epithelial Cells NONE SEEN /lpf (NONE-1+) 11/02/18 17:35 Urine Glucose 2+ (NEGATIVE) H 11/02/18 17:35 Urine Opiates Screen NEGATIVE (NEGATIVE) 11/02/18 17:35 Urine Barbiturates NEGATIVE (NEGATIVE) 11/02/18 17:35 Ur Phencyclidine Scrn NEGATIVE (NEGATIVE) 11/02/18 17:35 Ur Amphetamine Screen NEGATIVE (NEGATIVE) 11/02/18 17:35 U Benzodiazepines Scrn NEGATIVE (NEGATIVE) 11/02/18 17:35 Urine Cocaine Screen NON-NEGATIVE (NEGATIVE) H 11/02/18 17:35 U Marijuana (THC) Screen NEGATIVE (NEGATIVE) 11/02/18 17:35 Urine Ethyl Alcohol NEGATIVE (NEGATIVE) 11/02/18 17:41 Assessment & Plan Plan: This is a 68-year-old male presenting to the emergency room after having a night of partying with friends including cocaine use. He was a heavy cocaine user decades ago and had remained sober up until last night. He is presenting due to the feeling like he is going to , left-sided chest pain that has now resolved, and burning sensation when he urinates. His vital signs are the following: Blood pressure 129/82, heart rate 75, respirations 20, 100% on 2 L of oxygen, 36.4 temperature. #Chest pain #Elevated troponin #Dysuria #Diabetes II #Hx of Hepatitis C Plan: -Cardiology has been consulted; I spoke to Dr. Wilson regarding patient in his elevated troponin and EKG. We will continue to cycle his troponin every 6 hr x2 , I will repeat an EKG for comparison to his emergency room EKG and will continue to monitor him with tele. Echo complete in the morning most likely unless patient becomes symptomatic or condition worsens; in that case cardiology may need to intervene tonight. Update: 2nd troponin trending down 0.149, and 2nd EKG in comparison to emergency room EKG appears in sinus rhythm no ST elevation or depression. -Urinalysis was negative for any infection, he is afebrile. He received 2 L of normal saline in the emergency room and I suspect this is due to his lack of fluid intake since last night. Encourage p.o. intake and will receive IV fluid x 1 bag. -Toxicity screen was negative except for cocaine use; requested Afrin for nasal congestion -Insulin sliding scale while in house, glucose checks 3 times a day before meals ; holding metformin; A1c pending -Reports he received treatment for his hepatitis C and has been recently cured of hepatitis-C; in September his hepatitis C quant RNA PCR was less than 1 Diet: Regular Code: Full VTE ppx: SCDs Dispo: Admit to obs <Delma Trtoter - Last Filed: 11/02/18 23:12> History and Physical - History of Present Illness Review of Systems Review of Systems: Physical Exam Physical Exam: Temp Pulse Resp BP Pulse Ox 36.7 C 51 L 18 118/68 95 11/02/18 22:47 11/02/18 22:47 11/02/18 22:47 11/02/18 22:47 11/02/18 22:47 O2 (L/minute) 2 Lab Data & Imaging Review 11/02/18 16:37 11/02/18 16:37 WBC 6.62 10^3/uL (3.80-9.50) 11/02/18 16:37 RBC 4.85 10^6/uL (4.40-6.38) 11/02/18 16:37 Hgb 15.1 g/dL (13.7-17.5) 11/02/18 16:37 Hct 42.8 % (40.0-51.0) 11/02/18 16:37 MCV 88.2 fL (81.5-99.8) 11/02/18 16:37 MCH 31.1 pg (27.9-34.1) 11/02/18 16:37 MCHC 35.3 g/dL (32.4-36.7) 11/02/18 16:37 RDW 14.0 % (11.5-15.2) 11/02/18 16:37 Plt Count 89 10^3/uL (150-400) L 11/02/18 16:37 MPV 10.1 fL (8.7-11.7) 11/02/18 16:37 Neut % (Auto) 78.0 % (39.3-74.2) H 11/02/18 16:37 Lymph % (Auto) 11.9 % (15.0-45.0) L 11/02/18 16:37 [place] % (Auto) 7.9 % (4.5-13.0) 11/02/18 16:37 Eos % (Auto) 1.1 % (0.6-7.6) 11/02/18 16:37 Baso % (Auto) 0.6 % (0.3-1.7) 11/02/18 16:37 Nucleat RBC Rel Count 0.0 % (0.0-0.2) 11/02/18 16:37 Absolute Neuts (auto) 5.17 10^3/uL (1.70-6.50) 11/02/18 16:37 Absolute Lymphs (auto) 0.79 10^3/uL (1.00-3.00) L 11/02/18 16:37 Absolute Monos (auto) 0.52 10^3/uL (0.30-0.80) 11/02/18 16:37 Absolute Eos (auto) 0.07 10^3/uL (0.03-0.40) 11/02/18 16:37 Absolute Basos (auto) 0.04 10^3/uL (0.02-0.10) 11/02/18 16:37 Absolute Nucleated RBC 0.00 10^3/uL (0-0.01) 11/02/18 16:37 Immature Gran % 0.5 % (0.0-1.1) 11/02/18 16:37 Immature Gran # 0.03 10^3/uL (0.00-0.10) 11/02/18 16:37 PT 15.5 SEC (12.0-15.0) H 11/02/18 16:37 INR 1.28 (0.83-1.16) H 11/02/18 16:37 Sodium 134 mEq/L (135-145) L 11/02/18 16:37 Potassium 3.5 mEq/L (3.5-5.2) 11/02/18 16:37 Chloride 102 mEq/L (97-110) 11/02/18 16:37 Carbon Dioxide 21 mEq/l (22-31) L 11/02/18 16:37 Anion Gap 11 mEq/L (6-14) 11/02/18 16:37 BUN 13 mg/dL (7-23) 11/02/18 16:37 Creatinine 0.9 mg/dL (0.7-1.3) 11/02/18 16:37 Estimated GFR > 60 11/02/18 16:37 Glucose 247 mg/dL (70-100) H 11/02/18 16:37 POC Glucose 175 mg/dL (70-100) H 11/02/18 22:12 Hemoglobin A1c 10.7 % (4.0-6.0) H 11/02/18 16:37 Estim Average Glucose 260 mg/dL (68-126) H 11/02/18 16:37 Calcium 9.0 mg/dL (8.5-10.4) 11/02/18 16:37 Total Bilirubin 2.8 mg/dL (0.1-1.4) H 11/02/18 16:37 Conjugated Bilirubin 0.3 mg/dL (0.0-0.5) 11/02/18 16:37 Unconjugated Bilirubin 2.5 mg/dL (0.0-1.1) H 11/02/18 16:37 AST 46 IU/L (17-59) 11/02/18 16:37 ALT 43 IU/L (21-72) 11/02/18 16:37 Alkaline Phosphatase 87 IU/L (38-126) 11/02/18 16:37 Creatine Kinase 333 IU/L (0-224) H 11/02/18 16:37 CK-MB (CK-2) Fraction 9.29 ng/mL (0.00-4.55) H 11/02/18 16:37 CK-MB (CK-2) % 2.8 % (0.0-4.0) 11/02/18 16:37 Creatine Kinase Interp NEGATIVE (NEGATIVE) 11/02/18 16:37 POC Troponin I 0.19 ng/mL (0.00-0.08) H 11/02/18 16:43 Troponin I 0.149 ng/mL (0.000-0.034) H 11/02/18 19:20 Total Protein 7.5 g/dL (6.3-8.2) 11/02/18 16:37 Albumin 3.8 g/dL (3.5-5.0) 11/02/18 16:37 Urine Color PALE YELLOW 11/02/18 17:35 Urine Appearance CLEAR 11/02/18 17:35 Urine pH 7.0 (5.0-7.5) 11/02/18 17:35 Ur Specific [place] 1.003 (1.002-1.030) 11/02/18 17:35 Urine Protein NEGATIVE (NEGATIVE) 11/02/18 17:35 Urine Ketones NEGATIVE (NEGATIVE) 11/02/18 17:35 Urine Blood 1+ (NEGATIVE) H 11/02/18 17:35 Urine Nitrate NEGATIVE (NEGATIVE) 11/02/18 17:35 Urine Bilirubin NEGATIVE (NEGATIVE) 11/02/18 17:35 Urine Urobilinogen NEGATIVE EU (0.2-1.0) 11/02/18 17:35 Ur Leukocyte Esterase NEGATIVE (NEGATIVE) 11/02/18 17:35 Urine RBC 1-3 /hpf (0-3) 11/02/18 17:35 Urine WBC 1-3 /hpf (0-3) 11/02/18 17:35 Ur Epithelial Cells NONE SEEN /lpf (NONE-1+) 11/02/18 17:35 Urine Glucose 2+ (NEGATIVE) H 11/02/18 17:35 Urine Opiates Screen NEGATIVE (NEGATIVE) 11/02/18 17:35 Urine Barbiturates NEGATIVE (NEGATIVE) 11/02/18 17:35 Ur Phencyclidine Scrn NEGATIVE (NEGATIVE) 11/02/18 17:35 Ur Amphetamine Screen NEGATIVE (NEGATIVE) 11/02/18 17:35 U Benzodiazepines Scrn NEGATIVE (NEGATIVE) 11/02/18 17:35 Urine Cocaine Screen NON-NEGATIVE (NEGATIVE) H 11/02/18 17:35 U Marijuana (THC) Screen NEGATIVE (NEGATIVE) 11/02/18 17:35 Urine Ethyl Alcohol NEGATIVE (NEGATIVE) 11/02/18 17:41 Assessment & Plan Assessment: Troponin level elevated (Acute) Plan: Patient seen and evaluated independently and care plan reviewed with CARMELO Li, agree with her assessment and plan as outlined above. Please see separate documentation for further details.
[2018-11-02] MEDS ORDERED: NS 1,000 ML IV SCH (19:45)
[2018-11-02 20:11] LABS: INR 1.28 (0.83-1.16); PROTIME(PATIENT) 15.5 SEC (12.0-15.0)
[2018-11-02] MEDS: DICLOFENAC 0.1% 2.5 ML OPHT.BTL LEFTEYE SCH (21:05)
[2018-11-02] MEDS: prednisoLONE ACET 1% 5 ML OPHT.BTL LEFTEYE SCH (21:06)
[2018-11-02] MEDS: OXYMETAZOLINE 30 ML NASAL SPRAY EACHNARE SCH (21:34)
--- NOTE | 2018-11-02 22:50 | HOSPPROG ---
Hospitalist Progress Note Assessment/Plan: 68 yo M with PMH that includes CAD s/p stent, DM2, hep C s/p treatment as well as chronic cirrhosis presenting s/p cocaine use with multiple complaints including burning with urination, chest 'weakness' and generalized weakness as well as elevated trop # elevated trop: in the setting of cocaine use and abnormal sensation in the chest described as 'weakness', ecg not ischemic, will trend trops, monitor on tele, cardiology consulted # dysuria: unclear etiology, UA not c/w infection, will monitor I/Os # DM2: poorly controlled, on metformin alone as OP with A1c > 10, started on SSI , will need to dc on additional agents if patient amenable # cirrhosis: compensated, hx of varices, presumably due to hep c which is s/p treatment, followed by Dr. Vanegas # CAD: with stent placed in fairly distant past, as above bumped trop on arrival , continue op meds # cocaine use: patient denies that this is a frequent event, utox otherwise negative # observation status Patient new to my care. Old records reviewed, cxr and ecg personally reviewed and interpreted, care plan reviewed with CARMELO Li as above, please see her separate documentation for further details. Objective: Vital Signs Temp Pulse Resp BP Pulse Ox 36.7 C 51 L 18 118/68 95 11/02/18 22:47 11/02/18 22:47 11/02/18 22:47 11/02/18 22:47 11/02/18 22:47 11/01/18 11/02/18 11/03/18 05:59 05:59 05:59 Intake Total 1000 Balance 1000 PT 15.5 SEC (12.0-15.0) H 11/02/18 16:37 INR 1.28 (0.83-1.16) H 11/02/18 16:37 ICD10 Worksheet Patient Problems: Problems Problem Status Onset Troponin level elevated Acute Anemia Acute Pyelonephritis Acute
[2018-11-03] MEDS: prednisoLONE ACET 1% 5 ML OPHT.BTL LEFTEYE SCH ×4 (06:09→22:42)
--- NOTE | 2018-11-03 08:40 | CPEKG ---
Test Reason : OPEN Blood Pressure : / mmHG Vent. Rate : 056 BPM Atrial Rate : 056 BPM P-R Int : 201 ms QRS Dur : 085 ms QT Int : 476 ms P-R-T Axes : 016 040 054 degrees QTc Int : 460 ms Sinus rhythm Early R wave transition Confirmed by Dulce Whitehead ([id number]) on 11/03/2018 8:40:11 AM Referred By: Delma Trotter Confirmed By:Dulce Whitehead
[2018-11-03] MEDS: INSULIN LISPRO 100 UNIT/ML SC SCH ×4 (08:58→18:10)
[2018-11-03] MEDS: OXYMETAZOLINE 30 ML NASAL SPRAY EACHNARE SCH ×2 (08:58→22:42)
[2018-11-03] MEDS: PANTOPRAZOLE SODIUM 40 MG TAB PO SCH (08:58)
[2018-11-03] MEDS: DICLOFENAC 0.1% 2.5 ML OPHT.BTL LEFTEYE SCH ×2 (09:10→22:42)
--- NOTE | 2018-11-03 10:17 | ECHO ---
[email or web address] [address] [address] Main: [phone] Echocardiography Examination Transthoracic Name: MILE MAYER MR#: [id number] Study Date: 11/03/2018 Study Time: 08:11 AM Date of : 1950 Age: 68 year(s) Height: 172.7 cm (68 in.) Weight: 79.38 kg (175 lb.) BSA: 1.93 m2 Gender: Male Examination: Echo Contrast: Image Quality: Adequate Rhythm: Heart Rate: BP: 125 mmHg/65 mmHg Indication: elevated troponin, c/o CP Procedure Staff Referring Physician: Traffic Lieutenant: Sendy Sanchez RDCS Reading Physician: Mg Turner MD Requesting Provider: Ordering Physician: Maria R Li Indication: elevated troponin, c/o CP Measurements Chambers AV/MV Label Value Normal Value Label Value Normal Value LVOTd 2 cm (1.9cm - 2.1cm) AV PGmax 6 mmHg LVOT VTI 19.9 cm (18cm - 22cm) AV PGmean 3 mmHg LVDd, 2D 3.8 cm (4.2cm - 5.9cm) AV Vmax 1.26 m/s LVDs, 2D 2.7 cm (2.1cm - 4cm) CHIOMA (VTI) 2.6 cm2 IVSd, 2D 1 cm (0.6cm - 1.1cm) MV E Vmax 1 m/s LVPWd, 2D 1 cm (0.6cm - 1cm) MV A Vmax 0.81 m/s LVEF, BP 63 % (55% - 70%) MV E/A 1.23 LVEF, 2D 55 % (54% - 74%) MV E/E' lateral 12.7 LVOT PGmean 2 mmHg MV E/E' septal 16.8 (0.45 - 1.25) LVOT Vmean 0.61 m/s MV DT 218 ms RVDd, 2D 3.4 cm (1.9cm - 3.8cm) MV E' septal 0.06 m/s LA Volume, BP 56 ml (18ml - 58ml) MV PHT 0.07 s LADs, 2D 3.5 cm (3cm - 4cm) MVA PHT 3.3 cm2 LAESV index, BP 29 ml/m2 MV E' lateral 0.08 m/s Additional Vessels MV E/E' mean 14.29 Label Value Normal Value MV PHT 66 ms AoAsc 3.1 cm MV E' mean 0.07 m/s AoRoot, 2D 3.2 cm (1.4cm - 2.6cm) TV/PV IVC 2.2 cm (1.2cm - 2.3cm) Label Value Normal Value Patient: MILE MAYER Study Date: 11/03/2018 Page 1 of 3 08:11 AM RA Pressure 10 mmHg RVSP 33 mmHg TR Pmax 23 mmHg TR Vmax 2.4 m/s PV PGmax 2 mmHg PV Vmax, Caliper 0.76 m/s (0.6m/s - 0.9m/s) Conclusions Left Ventricle: Left ventricle is normal in size. Normal global systolic left ventricular function. The ejection fraction, measured by Simpsons method, is 63 %. EF range is estimated at 60 % - 65 %. There are no regional wall motion abnormalities. No LV hypertrophy. Right Ventricle: Right ventricular systolic function is normal. Mitral Valve: Redundant Mitral Valve Chordae. . Mild mitral regurgitation. Tricuspid Valve: Right Ventricular systolic pressure is measured at 33 mmHg. Pulmonary artery pressure is mildly increased. Pericardium: No pericardial effusion. Findings Left Ventricle: Left ventricle is normal in size. Normal global systolic left ventricular function. The ejection fraction, measured by Simpsons method, is 63 %. EF range is estimated at 60 % - 65 %. Left ventricle wall thickness is normal. There are no regional wall motion abnormalities. Left ventricular diastolic function parameters are normal. No LV hypertrophy. Right Ventricle: Normal size right ventricle. Right ventricular systolic function is normal. Left Atrium: The left atrium is normal in size. Right Atrium: The right atrium is normal in size. Mitral Valve: Redundant Mitral Valve Chordae. . Mitral valve appears structurally normal. Mild mitral regurgitation. No mitral valve stenosis. Mobile echodensity most likely consistent with MV chordae. Aortic Valve: Aortic leaflets are structurally normal. Trivial aortic regurgitation is present. There is no aortic stenosis. Tricuspid Valve: Tricuspid valve leaflets are structurally normal. Mild tricuspid regurgitation. No tricuspid valve stenosis. Right Ventricular systolic pressure is measured at 33 mmHg. Pulmonary artery pressure is mildly increased. Pulmonic Valve: Pulmonic leaflets are structurally normal. Aorta: Patient: MILE MAYER Study Date: 11/03/2018 Page 2 of 3 08:11 AM The aortic root size in 2D measures 3.2 cm. The ascending aorta measures 3.1 cm. Aorta Measurements AoRoot, 2D is 3.2 cm. IVC: The inferior vena cava is mildly dilated. Pericardium: No pericardial effusion. Exam Details Procedure Ordered: Echo Procedure Status: Routine study Image Quality: Adequate Facility Location: Bedside (No Signature Object) Patient: MILE MAYER Study Date: 11/03/2018 Page 3 of 3 08:11 AM [id number]
--- NOTE | 2018-11-03 11:09 | ASMTCAGE ---
CAGE Do you feel you ought to Answers: No cut down on your drinking or drug use? Do people annoy you by Answers: No criticizing your drinking or drug use? Do you feel guilty about Answers: Yes your drinking or drug use? Do you drink or use drugs Answers: No first thing in the morning (Eye Packager Head)? Additional Comments Patient refuses resources Date Signed: 11/03/2018 11:08 AM Electronically Signed By:Pema Sweeney
--- NOTE | 2018-11-03 11:20 | ASMTCMCOM ---
CM Note CM Note Notes: Patient is a 68-year old male. Admit for chest pain related to cocaine use. CM met with patient. CAGE completed. Patient refuses resources. Patient reports that he lives alone with his four pets. CM contact Dr Haywood child care and requested follow up. She reports that she was going to follow up with him. No therapy evals ordered today. CM discharge plan independent. CM available if needs change. Date Signed: 11/03/2018 11:20 AM Electronically Signed By:Pema Sweeney
--- NOTE | 2018-11-03 12:08 | GCON ---
[f rep st] CONSULTATION CARDIOLOGY CONSULTATION DATE OF CONSULTATION: 11/03/2018 REASON FOR CONSULTATION: Chest pain, elevated troponin. HISTORY OF PRESENT ILLNESS: The patient is a pleasant 68-year-old gentleman with a known history of coronary artery disease with a remote history of percutaneous coronary intervention, type 2 diabetes, hepatitis C with known chronic cirrhosis with history of esophageal varices, bleeding esophageal mariam ices, chronic anemia, and GI bleeding, who was in his usual state of health until yesterday when he d escribes that he was "partying with his friends" between 9 p.m. and 3 a.m. He states he did approxim ately a half a gram of cocaine. He states he used to have a cocaine addiction issue in the 1970s. Michael dawn states he thought he would be able to handle using some cocaine at this constitution party. After using cocaine , he states he felt as if he was going to . He noticed back pain, painful urination, and develope d left-sided chest pain which he described as a dull, constant pressure. He denied any associated sh ortness of breath, nausea, vomiting, or diaphoresis. With the above symptoms, he presented to [facility] for further evaluation. Initial ECG showed normal sinus rhythm with no acute ST-segment changes. Initial troponin on admission of 0.19. Currently at the time of my exam, he is resting comfortably. He has no cardiac complaints. He is ch est pain free. He states that in the absence of cocaine use, he does not have complaints of chest pain. He states michael dawn walks 30 minutes twice a week. He does note some mild shortness of breath with walking up an incli ne. However, he does not feel this is out of proportion with what he would anticipate for his level of fitness and his age. He denies any complaints of exertional chest pain, chest pressure, chest tightness. He denies any co mplaints of dyspnea on exertion, exertional intolerance, or fatigue. He denies palpitations, dizzine ss, lightheadedness, near syncope or syncope. He has no complaints of PND, orthopnea, or lower extre mity edema. Troponin since admission has trended down from initial point of care troponin of 0.19; initial serum troponin of 0.149, trending down to 0.113, and most recently at 5 a.m. this morning at 0.067. Repeat ECG demonstrates sinus rhythm with no acute changes. He did undergo complete 2D echocardiogram demonstrating normal left ventricular size and function, no rmal wall motion with LVEF of 60% to 65%. No wall motion abnormalities. Normal right ventricular si ze and function. No significant valvular abnormalities, and no evidence of pericardial effusion. He does have a known history of coronary artery disease with a remote history of PCI. He has not bee n followed by Cardiology for many years. He is currently on no cardiac medications. He is not on as pirin or statin therapy. He has not undergone any risk stratification since his percutaneous coronar y intervention in the early 1999s. MEDICATIONS: On admission include metformin 500 mg p.o. b.i.d., prednisolone 1 drop in the left eye q.i.d., Protonix 40 mg daily, diclofenac sodium eye drops 1 drop to left eye b.i.d. ALLERGIES: To medication, penicillin. SOCIAL HISTORY: He is . He has a 40-year-old daughter whom he has very little contact with. 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 He is a lifelong nonsmoker. He does not drink alcoho l. Remote history of cocaine abuse in the 1970s, with 1st use in over a decade per his report last n ight. FAMILY HISTORY: No family history of premature coronary artery disease. PHYSICAL EXAMINATION: VITAL SIGNS: Blood pressure 125/65, heart rate of 47 in sinus rhythm, respira tory rate of 11, oxygen saturation 94% on room air, temperature 36.6. GENERAL: He is awake, alert, oriented, appropriate. No apparent distress. There is no evidence of JVP or carotid bruits. LUNGS: Clear to auscultation bilaterally. CARDIAC: S1, S2. Regular rate and rhythm. No murmurs, rubs, or gallops. PMI is not displaced. ABDOMEN: Soft, nontender. EXTREMITIES: There is no evidence of cyanosis, clubbing, or edema. DATA: White blood cell count 6.62, hemoglobin 15, hematocrit 42.8, platelet count 89. INR 1.28. So dium 134, potassium 3.5, chloride 102, bicarb 21, BUN 13, creatinine 0.9. Hemoglobin A1c was 10.7, w ith average glucose of 260. AST 46, ALT 43, alkaline phosphatase 87. CK elevated at 333, CK-MB frac tion 9.29, CK-MB percentage 2.8. Troponins: Initial point of care troponin of 0.19. Initial serum troponin of 0.177, trending down to 0.149 down to 0.113, and most recently to 0.067. IMPRESSION: 1. Acute onset of chest pain in the setting of cocaine abuse. 2. Mildly elevated troponin, trending down. 3. Known history of coronary artery disease with remote history of PCI in the early . 4. History of hepatitis C, status post Harvoni therapy. 5. History of cirrhosis and esophageal varices with history of anemia. 6. Thrombocytopenia, with platelet count of 89. SUMMARY: The patient is a pleasant 68-year-old gentleman with remote history of coronary artery dise ase with previous PCI, type 2 diabetes, with medical history complicated by cirrhosis and esophageal varices, chronic anemia, thrombocytopenia, and status post Harvoni therapy for underlying hepatitis C , who had an isolated binge episode of cocaine use the night before resulting in chest pain and eleva braulio troponin. Outside of these episodes, he does not have symptoms. He did have breakfast this morning. In the absence of symptoms outside of his episode of cocaine use , would prefer for risk stratification with exercise nuclear stress test to be performed prior to dis charge. PLAN: 1. Check troponin this afternoon. 2. N.p.o. after midnight. 3. Exercise nuclear stress test to be performed in the morning. Phone call has been placed to his director regulatory agency, Dr. Stalin Vanegas, to discuss liver disease an d his history of cirrhosis, and consideration of cardiac medications, including antiplatelet medicati ons and statin therapy. Will check fasting lipid profile in the morning, as well. /[id number]/MODL
--- NOTE | 2018-11-03 16:28 | HOSPPROG ---
Hospitalist Progress Note Assessment/Plan: 68 yo M with PMH that includes CAD s/p stent, DM2, hep C s/p treatment as well as chronic cirrhosis presenting s/p cocaine use with multiple complaints including burning with urination, chest 'weakness' and generalized weakness as well as elevated trop # elevated trop: in the setting of cocaine use and abnormal sensation in the chest described as 'weakness', ecg not ischemic, Troponins trended down overnight, monitor on tele, cardiology consulted this morning who recommend MPS in the aM to further evaluate # dysuria: unclear etiology, UA not c/w infection, will monitor I/Os # DM2: poorly controlled, on metformin alone as OP with A1c > 10, started on SSI , continue to monitor BG # cirrhosis: compensated, hx of varices, presumably due to hep c which is s/p treatment, followed by Dr. Vanegas # CAD: with stent placed in fairly distant past, as above bumped trop on arrival , continue op meds # cocaine use: patient denies that this is a frequent event, utox otherwise negative Objective: Vital Signs Temp Pulse Resp BP Pulse Ox 36.4 C 59 L 17 125/75 H 94 11/03/18 15:47 11/03/18 15:47 11/03/18 15:47 11/03/18 15:47 11/03/18 15:47 11/02/18 11/03/18 11/04/18 05:59 05:59 05:59 Intake Total 1500 1380 Balance 1500 1380 PT 15.5 SEC (12.0-15.0) H 11/02/18 16:37 INR 1.28 (0.83-1.16) H 11/02/18 16:37 ICD10 Worksheet Patient Problems: Problems Problem Status Onset Troponin level elevated Acute Anemia Acute Pyelonephritis Acute
[2018-11-04] MEDS: prednisoLONE ACET 1% 5 ML OPHT.BTL LEFTEYE SCH ×2 (05:33→11:27)
--- NOTE | 2018-11-04 07:51 | PDCARPN ---
Cardiology Progress Note Assessment/Plan: Assessment: -Chest pain with mild troponin elevation in the setting of cocaine use -CAD with hx of PCI -Hep C sp Harvoni treatment -Cirrohsis -Esophageal Varices -Thrombocytopenia Plan: -Exercise Nuclear Stress this AM -Phone call to Dr. Vanegas of GI to discuss anti platlet therapy and statin in the setting of Cirrohsis and thrombocytopenia -Will follow 11/04/18 07:52 Subjective: Mr. Yi is feeling well. No new episodes of chest pain. BP stable. No events on tele. Troponin continues to trend down0.177 to 0.149 to 0.113 to 0.067 and most recent 0.020. No sob, hill, palps, nausea, vomiting or flank pain. Note: he is not on antiplatelet therapy. Hx of Hep C, cirrohisis and esophageal varices and thrombocytopenia. He is not on statin therapy. LDL is 71. [employer] call has been placed to Dr. Vanegas (GI [facility]) who is GI MD to discuss anti platelet therapy and statin. exercise nuclear stress test this morning. Objective: Vital Signs (8 Hrs) Temp Pulse Resp BP Pulse Ox 11/04/18 06:53 36.7 C 58 L 20 112/78 95 11/04/18 03:02 36.8 C 66 20 132/75 H 93 Intake/Output (24 Hrs) 11/03/18 11/04/18 11/05/18 05:59 05:59 05:59 Intake Total 1500 1860 Balance 1500 1860 Intake: Oral (ml) 500 1860 IV Infused (ml) 1000 Other: Weight 79.605 kg Intake Quantity Yes Sufficient Number of Voids 1 Toilet 2 3 Result Diagrams: 11/02/18 16:37 11/02/18 16:37 Cardiac Labs: Cardiac Lab Results (72 Hrs) 11/03/18 11/03/18 11/02/18 14:57 05:08 20:40 Troponin I 0.020 0.067 H 0.113 H 11/02/18 19:20 Troponin I 0.149 H - Physical Exam Cardiovascular: regular rate and rhythm, no murmurs, no rubs, no gallops Respiratory: clear to auscultate bilat Neurologic: AAOx3, CN II-XII grossly intact Psychiatric: cooperative, interactive, following commands ICD10 Worksheet Patient Problems: Problems Problem Status Onset Troponin level elevated Acute Anemia Acute Pyelonephritis Acute
[2018-11-04] MEDS ORDERED: REGADENOSON 0.4 MG/5 ML SYR IVP ONE (08:52)
[2018-11-04] MEDS: PANTOPRAZOLE SODIUM 40 MG TAB PO SCH (10:47)
[2018-11-04] MEDS: OXYMETAZOLINE 30 ML NASAL SPRAY EACHNARE SCH (10:48)
[2018-11-04] MEDS: INSULIN LISPRO 100 UNIT/ML SC SCH ×2 (11:11→11:26)
[2018-11-04] MEDS: DICLOFENAC 0.1% 2.5 ML OPHT.BTL LEFTEYE SCH (11:11)
[2018-11-04 11:58] VITALS: BP 150/81
--- NOTE | 2018-11-04 12:23 | PDCARST ---
CAR Stress Test Results Type of Stress Test: Lexiscan stress test Indication: cp Description of Procedure: After informed consent was obtained, pt was established to ECG, blood pressure, HR and oximetry monitoring. STRESS EKG AND HEMODYNAMIC DATA. Resting heart rate: 58 BPM. Resting ECG: SR. Resting blood pressure: 112/68 mmHg. O2 saturation at rest: 96%. Peak heart rate: 78 BPM. Peak blood pressure: mmHg. Arrhythmias: none. Symptoms: The patient experienced no typical symptoms of angina during stress or recovery. Stress/Infusion ECG: No change in rhythm with no significant ST/T wave changes. Stress/infusion O2 saturation: 98% Impression: Uneventful Lexiscan infusion. Conclusion: Await nuclear images.
--- NOTE | 2018-11-04 14:56 | PDDCSUM ---
Discharge Summary Discharge Summary: Date of Admission: 11/02/2018 Date of Discharge: 11/04/2018 Consults: Cardiology Procedures: MPS Followup: PCP (for further diabetes management), GI, Cardiology Hospital Course Problem List: 68 yo M with PMH that includes CAD s/p stent, DM2, hep C s/p treatment as well as chronic cirrhosis presenting s/p cocaine use with multiple complaints including burning with urination, chest 'weakness' and generalized weakness as well as elevated trop # elevated trop: in the setting of cocaine use and abnormal sensation in the chest described as 'weakness', ecg not ischemic, Troponins initially elevated then trended down to normal, cardiology consulted who recommend MPS performed on 11/04 which showed no acute ischemic changes, pt to followup with PCP/GI/ Cardiology for initiation of ASA, Statin # dysuria: unclear etiology, UA not c/w infection, resolved # DM2: poorly controlled, on metformin alone as OP with A1c > 10, started on SSI , recommended f/u with PCP for further management, encouraged lifestyle modifications with diet and exercise # cirrhosis: compensated, hx of varices, presumably due to hep c which is s/p treatment, followed by Dr. Vanegas # CAD: with stent placed in fairly distant past, as above bumped trop on arrival , continue op meds, initiation of ASA/Statin as OP as above # cocaine use: patient denies that this is a frequent event, utox otherwise negative Time spent on discharge was >35 minutes with >50% of time spent on patient education and counseling.
== END 2018-11-04 14:27 | disposition home or self-care (01) ==
LOC: F2W 18:15
PROVIDERS: ADMIT Internal Medicine; ATTEND Internal Medicine
DX: R79.89 Other specified abnormal findings of blood chemistry (principal); E11.9 Type 2 diabetes mellitus without complications; F14.90 Cocaine use, unspecified, uncomplicated; K74.60 Unspecified cirrhosis of liver; R30.0 Dysuria; Z95.5 Presence of coronary angioplasty implant and graft; Z86.14 Personal history of Methicillin resistant Staphylococcus aureus infection
CPT/HCPCS: 78452; 93005; 93017; 93306; A9500; G0378; J1815; J2785; 80305; 84484-ER; G0480

== ENCOUNTER 2018-11-12 22:40 | Emergency (ER) | payer OTHER ==
--- NOTE | 2018-11-12 23:25 | EDPHY ---
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 Patient was trying to get the dog treatment been no left hand. Occurred approximately 1 hr prior to arrival. Denies any other injuries. Patient has history of diabetes and anemia. ROS: 10 systems were reviewed and were negative except those elements noted in the HPI. PMH: Diabetes, anemia Social History: No smoking, no alcohol, no recreational drug use Family History: non-contributory Physical Exam: Gen: Awake, Alert, No Distress HEENT: Nose: no rhinorrhea Eyes: PERRLA, EOMI Mouth: Moist mucosa Neck: Supple, no JVD Chest: nontender, lungs clear to auscultation Heart: S1, S2 normal, no murmur Abd: Soft, non-tender, no guarding Back: no CVA tenderness, no midline tenderness Ext: Left hand:. Patient has 3 puncture wounds in the thenar eminence of his left hand. One is 1 cm in length and is deep. The other 2 approximately 5 mm. He has full flexion extension strength of all digits. He is neurologically intact in the radial, median, and ulnar nerve distribution. Capillary refills less than 3 sec. He has 2+ radial ulnar pulses. There is no erythema or discharge. No other injuries. Skin: no rash Neuro: CN II-XII intact, Sensation grossly intact, Strength 5/5 in bilateral upper and lower extremities - Personal History Current Tetanus/Diphtheria Vaccine: No Current Tetanus Diphtheria and Acellular Pertussis (TDAP): No - Medical/Surgical History Hx Asthma: No Hx Chronic Respiratory Disease: No Hx Diabetes: Yes Hx Cardiac Disease: Yes Hx Renal Disease: No Hx Cirrhosis: Yes Hx Alcoholism: No Hx HIV/AIDS: Yes Hx Splenectomy or Spleen Trauma: No Other PMH: anemia, hepatitis C, esphogeal varices, ascities, cardiac stents,. bacteremia,. DM II - Social History Smoking Status: Never smoked Constitutional: Initial Vital Signs Temperature (C) 37.0 C 11/12/18 22:43 Heart Rate 77 11/12/18 22:43 Respiratory Rate 18 11/12/18 22:43 Blood Pressure 163/94 H 11/12/18 22:43 O2 Sat (%) 96 11/12/18 22:43 O2 Delivery Mode Room Air Allergies/Adverse Reactions: Penicillins Allergy (Unknown, Verified 11/12/18 22:45) Other-Enter Comments Home Medications: Medication Instructions Recorded Diclofenac Sodium 1 drop LEFTEYE BID 11/02/18 Pantoprazole Sodium [Protonix 40mg 40 mg PO DAILY 11/02/18 (*)] Prednisolone Acetate 1 drop LEFTEYE QID 11/02/18 metFORMIN HCL [Metformin HCl] 500 mg PO BID 11/02/18 Amoxicillin/Clavulanate Pot 875 mg PO BID #14 tab 11/12/18 [Augmentin 875 MG TAB (*)] Medical Decision Making ED Course/Re-evaluation: Patient with a dog bite to the left hand. Has been irrigated extensively. The larger laceration has been of loosely approximated with sutures. He has been started on Augmentin. Patient has a penicillin allergy but states that he has taken amoxicillin in the past. His penicillin allergy is was told to him when he was a child but he is not aware of any reaction. He would like to take the Augmentin. - Data Points Medications Given: Discontinued Medications Amoxicillin/Clavulanate Potassium (Augmentin 875mg) 875 mg PO EDNOW ONE PRN Reason: Protocol Stop: 11/12/18 23:40 Last Admin: 11/13/18 00:11 Dose: 875 mg Departure - Departure Disposition: Home, Routine, Self-Care Clinical Impression: Dog bite, Laceration Condition: Good Instructions: Animal Bite (ED), Care For Your Stitches (ED), Laceration (ED) Additional Instructions: Please take her full course of antibiotics. Suture need to be removed in 10 days. Return sooner for increasing redness, discharge from the wound, streaking up your arm, increasing pain, or any other concerns. Referrals: NONE *PRIMARY CARE P,. [Primary Care Provider] - As per Instructions Prescriptions: Amoxicillin/Clavulanate Pot [Augmentin 875 MG TAB (*)] 875 mg PO BID #14 tab
[2018-11-12] MEDS ORDERED: AMOXICILLIN/CLAVULANATE POT 875/125 MG TAB PO ONE (23:39)
[2018-11-21 23:40] VITALS: BP 131/91
== END 2018-11-13 00:24 | disposition home or self-care (01) ==
PROC: 0HQGXZZ Repair Left Hand Skin, External Approach (ICD-10-PCS; principal; 2018-11-12)
DX: S61.432A Puncture wound without foreign body of left hand, initial encounter (principal); W54.0XXA Bitten by dog, initial encounter; Y92.414 Local residential or business street as the place of occurrence of the external cause; Y99.0 Civilian activity done for income or pay